=== PATIENT | male | born 1945 | race Caucasian/White ===

== ENCOUNTER → 2020-01-05 10:35 | Outpatient (BNVA) | payer MEDICARE, SELFPAY | PROVIDERS: PCP Internal Medicine; Referring Provider Internal Medicine; Visit Provider Internal Medicine Cardiovascular Disease | DX: I25.10 Atherosclerotic heart disease of native coronary artery without angina pectoris (principal); E78.5 Hyperlipidemia, unspecified; Z79.82 Long term (current) use of aspirin; Z79.899 Other long term (current) drug therapy; Z95.5 Presence of coronary angioplasty implant and graft | CPT/HCPCS: Q3014 ==

== ENCOUNTER 2020-06-28 08:35 | Outpatient (REF) | payer MEDICARE, SELFPAY ==
[2020-06-28 11:40] LABS: Hematocrit 47.9 % (42-52); Hemoglobin 15.4 g/dl (14.0-18.0); Mean Corpuscular HGB Conc 32.2 g/dl (31.0-36.0); Mean Corpuscular Volume 93.2 fL (80-98); Platelet Count 186 X10*3/uL (160-400); Red Blood Count 5.14 X10*6/uL (4.60-5.80); Red Cell Distribution Width 12.6 % (11.0-16.0); White Blood Count 6.1 X10*3/uL (4.8-10.8)
[2020-06-28 12:05] LABS: Anion Gap 12 (12-20); Blood Urea Nitrogen 14 mg/dL (9-16); Calcium 9.5 mg/dL (8.4-10.2); Carbon Dioxide 31 mmol/L (22-29); Chloride 106 mmol/L (96-108); Cholesterol 127 mg/dL; Estimated Glomerular Filt Rate > 60; Glucose Random 101 mg/dL (60-115); HDL Cholesterol 50 mg/dL; LDL Cholesterol Calculated 66 mg/dl; Potassium 4.6 mmol/L (3.3-5.1); Sodium 144 mmol/L (135-145); Triglycerides 57 mg/dL
== END 2020-06-28 08:36 | disposition home or self-care (01) ==
LOC: HO.HMGCLDS 08:35
PROVIDERS: PCP Internal Medicine; Visit Provider Internal Medicine Cardiovascular Disease
DX: E78.5 Hyperlipidemia, unspecified (principal); I25.10 Atherosclerotic heart disease of native coronary artery without angina pectoris
CPT/HCPCS: 36415; 80048; 80061; 85027

== ENCOUNTER → 2020-07-10 08:06 | Outpatient (BNVA) | payer MEDICARE, SELFPAY | PROVIDERS: PCP Internal Medicine; Visit Provider Internal Medicine Cardiovascular Disease | DX: I25.10 Atherosclerotic heart disease of native coronary artery without angina pectoris (principal); E78.5 Hyperlipidemia, unspecified | CPT/HCPCS: 93005; 99212 ==

== ENCOUNTER → 2021-08-16 08:04 | Outpatient (BNVA) | payer MEDICARE, SELFPAY | PROVIDERS: PCP Internal Medicine; Referring Provider Internal Medicine; Visit Provider Internal Medicine Cardiovascular Disease | DX: I25.10 Atherosclerotic heart disease of native coronary artery without angina pectoris (principal) | CPT/HCPCS: 93005; 99212 ==

== ENCOUNTER 2021-09-27 07:30 | Outpatient (REF) | payer MEDICARE, SELFPAY ==
[2021-09-27 11:51] LABS: Hematocrit 46.3 % (42.0-52.0); Hemoglobin 15.1 g/dl (14.0-18.0); Mean Corpuscular HGB Conc 32.6 g/dl (31.0-36.0); Mean Corpuscular Hemoglobin 30.1 pg (27.0-33.0); Mean Corpuscular Volume 92.2 fL (80.0-98.0); Mean Platelet Volume 11.4 fL (9.4-12.4); Platelet Count 150 X10*3/uL (160-400); Red Blood Count 5.02 X10*6/uL (4.60-5.80); Red Cell Distribution Width 13.1 % (11.0-16.0); White Blood Count 5.3 X10*3/uL (4.8-10.8)
[2021-09-27 12:05] LABS: Estimated Average Glucose 103 mg/dL; Hemoglobin A1c % 5.2 %
[2021-09-27 12:37] LABS: Alanine Aminotransferase 21 U/L (0-40); Albumin Level 4.4 g/dL (3.5-5.0); Alkaline Phosphatase 71 U/L (39-117); Anion Gap 13 (12-20); Aspartate Amino Transferase 21 U/L (5-37); Bilirubin Total 0.7 mg/dL (0.0-1.0); Blood Urea Nitrogen 16 mg/dL (9-16); Calcium 9.4 mg/dL (8.4-10.2); Carbon Dioxide 30 mmol/L (22-29); Chloride 106 mmol/L (96-108); Cholesterol 131 mg/dL; Estimated Glomerular Filt Rate > 60; Glucose Fasting 102 mg/dL (60-99); HDL Cholesterol 54 mg/dL; LDL Cholesterol Calculated 67 mg/dl; Sodium 144 mmol/L (135-145); Total Protein 6.7 g/dL (6.5-8.0); Triglycerides 51 mg/dL
== END 2021-09-27 07:31 | disposition home or self-care (01) ==
LOC: HO.HMGCLDS 07:30
PROVIDERS: Absent Provider Internal Medicine Cardiovascular Disease; PCP Internal Medicine; Visit Provider Internal Medicine
DX: Z00.00 Encounter for general adult medical examination without abnormal findings (principal); E78.5 Hyperlipidemia, unspecified
CPT/HCPCS: 36415; 80053; 80061; 83036; 85027

== ENCOUNTER → 2022-08-13 14:50 | Outpatient (BNVA) | payer MEDICARE, SELFPAY | PROVIDERS: PCP Internal Medicine; Referring Provider Internal Medicine; Visit Provider Nurse Practitioner Family | DX: I25.10 Atherosclerotic heart disease of native coronary artery without angina pectoris (principal); E78.5 Hyperlipidemia, unspecified; Z95.5 Presence of coronary angioplasty implant and graft; Z79.82 Long term (current) use of aspirin; Z79.899 Other long term (current) drug therapy | CPT/HCPCS: 93005; 99212 ==

== ENCOUNTER 2022-12-18 09:59 | Outpatient (AMB) | payer MEDICARE, SELFPAY ==
[2022-12-18 10:00] VITALS: BMI 23.6
--- NOTE | 2022-12-18 10:00 | MHC.OFFVIS ---
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 He explains thathe has had intermittent pain and locking over the last year with worsening symptoms over the last few months. He has utilized splinting for about a week and a half which caused increased pain. He is interested in a cortisone injection as he has had good relief with injection in his shoulder in the past. Allergies No Known Allergies Allergy (Verified 12/18/22 10:01) Medication List - Last Reconciled 12/18/22 by Ashtyn Prince MD acetaminophen (Tylenol Extra Strength) 500 mg PO Q6H PRN aspirin 81 mg PO DAILY atorvastatin 40 mg PO DAILY dorzolamide 2% 0 drps ophthalmic (eye) famotidine 20 mg PO BEDTIME finasteride 5 mg PO DAILY latanoprost 0.005% drps ophthalmic (eye) simethicone (Gas Relief (simethicone)) 125 mg PO BID-QID PRN HPI HPI Comments History of Present Illness Details Started 1 1/2 year ago, recurrent, triggering of right milddle finger. Worsened a month ago, tried a splint which made it painful. Locks on a flexed position. Points to PIP and MCP joint as tender. No swelling. No numbness No weakness PFSH Medical History (Updated 12/18/22 @ 10:45 by Ashtyn Prince MD) Trigger finger of right hand Annual physical exam CAD (coronary artery disease) Hyperlipidemia Surgical History Stented coronary artery Family History Father Cardiovascular disease Mother No problems noted. Social History Housing: House Alcohol intake: current Alcohol intake frequency: a few times a month Alcohol type: beer Patient Tobacco Use Status: Former Tobacco user e-Cigarette/Vaping Use: Never Used Current occupational status: retired Cognitive needs: No Hearing needs: No Vision needs: Yes Review of Systems Const All systems reviewed & are unremarkable except as noted in HPI and below Physical Exam Vital Signs: BMI result Body Mass Index 23.6 Constitutional: Patient appears to be in no acute distress, well nourished and well developed. MSK: Triggering right 3rd digit. Palpable nodule. No intrinsic hand weakness noted. No atrophy noted. Liliam test negative. Carpal compression test negative. Tinel sign negative. No joint tenderness or swelling or redness. Strength is 5/5 in all muscle groups tested. No increased tone noted. Neurological: Neurologic examination of the upper and lower extremities was nonfocal with intact sensation, muscle stretch reflexes and without focal motor deficits . Zayas?s negative bilaterally. Gait is non-antalgic without loss of balance. Office Procedures Tendon Injection Tendon Injection Details: Risks and benefits discussed. Consent obtained. Patient places right hand palm up on table. Identified and marked nodule. Area prepped in sterile manner. Inserted 27 gauge 0.5 inch needle perpendicular into nodule, injecting 10mg Kenalog with 0.75mg 2% Lidocaine. Patient tolerated procedure well. Post injection instructions given. [id number]-Iebidz Tendon Sheath Injection All charges added?: Procedure code (CPT) selection complete Results Reviewed Results Reviewed: 12/18/22 10:14 Lidocaine HCl 1 % [Xylocaine 1 %] 2 ml .ROUTE .STK-MED ONE 12/18/22 10:15 Triamcinolone Acetonide [Kenalog-40] 40 mg .ROUTE .STK-MED ONE Assessment & Plan Assessment & Plan (1) Trigger finger of right hand: Code(s): M65.30 - Trigger finger, unspecified finger Qualifiers: Trigger finger location: middle finger Qualified Code(s): M65.331 - Trigger finger, right middle finger Plan Patient wanted to proceed with trigger finger injection. Patient tolerated procedure well. We briefly talked about the option for surgery if this does not get better. Advise ice today. And to wear finger splint the rest of the week. Finger splint provided. Assessment and plan discussed with patient, and patient was agreeable. All questions were answered thoroughly. Possible follow-up with me 3 months. Ashtyn Prince MD, RAY Board Certified, [place] Board of [employer] Medicine and Rehabilitation (ABPMR) Board Certified, [place] Board of Electrodiagnostic Medicine (ABEM) Orders: Orders AMB Injection-Tendon Today M65.30 - Trigger finger, unspecified finger Coding Level of Care Code New Pt Level 3 (85158) Diagnoses Trigger middle finger of right hand M65.331 Trigger finger location: middle finger CPT Codes Tendon Injection - Tendon Injection 1: 03602-Emwygp Tendon Sheath Injection ([id number])
== END 2022-12-18 11:22 | disposition home or self-care (01) ==
PROVIDERS: PCP Internal Medicine; Visit Provider Physical Medicine & Rehabilitation
DX: M65.331 Trigger finger, right middle finger (principal)
CPT/HCPCS: 20550; 99203

== ENCOUNTER → 2022-12-18 09:59 | Outpatient (BNVA) | payer MEDICARE, SELFPAY | PROVIDERS: PCP Internal Medicine; Visit Provider Physical Medicine & Rehabilitation | DX: M65.331 Trigger finger, right middle finger (principal) | CPT/HCPCS: 20550; 99202; J3301 ==

== ENCOUNTER 2023-01-16 08:33 | Outpatient (AMB) | payer MEDICARE, SELFPAY ==
[2023-01-16 08:44] VITALS: BP 114/64; PULSE 70; O2SAT 96; BMI 23.9
--- NOTE | 2023-01-16 08:44 | A.OFFVIS_ITS ---
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 Pt would like to discuss getting pneumonia vaccine. Allergies No Known Allergies Allergy (Verified 01/16/23 08:49) HPI SWV G0439 HPI Details Pt presents for ANNUALInitiated the conversation about Advanced Directives. Advanced Directives help? patients prepare for current and future decisions about their medical treatment? and place of care. Discussed with patient that it is a process where a patients? current condition and prognosis are reviewed, their wishes for information? regarding their illness are elicited, and likely medical dilemmas are presented? and options discussed. The form can be amended as needed, reviewed yearly and? make changes as needed IPPE/AWV ? year old presents? for her ? Annual? Wellness Visit, initial visit.? Medical / Social History Reviewed? Past Medical History ?Yes? . ? [place]? of Care / Care Team list updated ?Yes . ? Surgical/Hospitalization? History ?Yes . ? Current Medications? (including OTC and supplements) ?Yes . ? Family History ?Yes? . ? Tobacco? Control form ?Yes . ? AUDIT-C (Alcohol use) form? ?Yes . ? Illicit drug use in Social? History ?Yes . ? Current diagnosis of? depression? ?No ? Appropriate PHQ2/PHQ9? completed ?Yes . ? Data entered by ?Medical? Test And Turn Up Technician and reviewed by provider ? Fall Risk ? Fall? History? Have you had any falls with? injury in the past year? ?No . ? Have you had two or more? falls in the past year? ?No . ? Fall Risk Assessment: ?No? falls in the past year . ? HRA filled out by? the patient, reviewed by Provider and scanned. ? IPPE/AWV ? Balance? Rom[place]? ?Yes . ? Tandem? walk ?Yes . ? Walk and? Turn ?Yes . ? Rise from? sit to stand ?Yes . ?Vision? Corrective? lens ?Yes ? Vision? screen ? Up-to-date, has an appointment [] for vision? screening and glaucoma screening ?Hearing? Whisper? test ?pass .? Initiated the conversation about Advanced Directives. Advanced Directives help? patients prepare for current and future decisions about their medical treatment? and place of care. Discussed with patient that it is a process where a patients? current condition and prognosis are reviewed, their wishes for information? regarding their illness are elicited, and likely medical dilemmas are presented? and options discussed. The form can be amended as needed, reviewed yearly and? make changes as needed Written? Plan?Completed. See Patient? Documents. [facility] Medical History Trigger finger of right hand Annual physical exam CAD (coronary artery disease) Hyperlipidemia Surgical History Stented coronary artery Family History Father Cardiovascular disease Mother No problems noted. Social History Housing: House Alcohol intake: current Alcohol intake frequency: a few times a month Alcohol type: beer Patient Tobacco Use Status: Former Tobacco user e-Cigarette/Vaping Use: Never Used Current occupational status: retired Cognitive needs: No Hearing needs: No Vision needs: Yes Questionnaire Medicare Wellness Checkup [age] What gender do you identify with?: male During the past 4 weeks, how much have you been bothered by emotional problems such as feeling anxious, depressed, irritable, sad or downhearted, and blue?: not at all During the past 4 weeks, has your physical & emotional health limited your social activities with family, friends, neighbors, or groups?: not at all During the past 4 weeks, how much bodily pain have you generally had?: very mild pain During the past 4 weeks, was someone available to help you if you needed & wanted help?: yes, as much as I wanted During the past 4 weeks, what was the hardest physical activity you could do for at least 2 minutes?: moderate Can you get to places out of walking distance without help? (For eg., can you travel alone on buses, taxis or drive your car?): Yes Can you go shopping for groceries or clothes without someone's help?: Yes Can you prepare your own meals?: Yes Can you do your housework without help?: Yes Because of any health problems, do you need the help of another person with your personal care needs such as eating, bathing, dressing or getting around the house?: No Can you handle your own money without help?: Yes During the past 4 weeks, how would you rate your health in general?: very good During the past 4 weeks how have things been going for you?: very well; could hardly better Are you having difficulties driving your car?: no Do you always fasten your seat belt when you are in a car?: yes, usually During past 4 weeks, have you been bothered by the following: never: Falling or dizzy when standing up, Sexual problems?, Trouble eating well?, Teeth or denture problems? and Problems using the telephone? and seldom: Tiredness or fatigue? Have you fallen 2 or more times in the past year?: No Are you afraid of falling?: No Are you a smoker?: no During the past 4 weeks, how many drinks of wine, beer, or other alcoholic beverages did you have?: no alcohol at all Do you exercise for about 20 minutes 3 or more times a week?: yes, most of the time Have you been given information to help with the following?: yes: Hazards in your house that might hurt you? and yes: Keeping track of your medications? How often do you have trouble taking medicines the way you have been told to take them?: I always take medicine as prescribed How confident are you that you can control & manage most of your health problems?: very confident What is your race?: White Mini Mental State Exam (MMSE) Orientation What is the (year) (season) (date) (day) (month)?: year, season, date, day and month Where are we (state) (county) (town or city) (hospital) (floor)?: state, county, town or city, hospital/clinic and floor Registration Name of 3 unrelated objects clearly and slowly, then ask patient to repeat all 3 of them. (1st repeat determines score. Make sure they can repeat all three): object 1, object 2 and object 3 Attention & Calculation (CHOOSE ONE) Spell WORLD backwards (DLROW): 5 letters Recall Ask patient to repeat the 3 items from question #3.: object 1, object 2 and object 3 Language Show patient a wristwatch & ask what it is. Repeat for pencil.: watch and pencil Ask the patient to repeat the phrase 'No ifs, ands, or buts' after you.: correct Ask the patient to 'take a piece of paper with their right hand' 'fold paper in half' 'place paper on floor': take paper in right hand, fold paper in half and place paper on floor Give patient a blank piece of paper & ask to write a sentence. Score if it contains a noun & verb.: sentence contains subject and verb Ask patient to copy figure of intersecting pentagons exactly. Score if all 10 angles & 2 intersects are included.: all 10 angles present & 2 are intersected Score Score: 29 Activity of Daily Living Bathing - sponge bath, tub bath or shower: receives no assistance (gets in/out by self, if usual bathing means Dressing - getting clothes from closets & drawers, including inner/outer garments & fasteners.: gets clothes & gets completely dressed without help Toileting - going to the 'toilet room' for urine/bowel elimination & cleaning self/arranging clothes: goes to toilet room, cleans self, arranges clothes without help Transfer: moves in & out of bed and chair without help (may use support object) Continence: controls urination/bowel movements completely by self Feeding: feeds self without help Total Score: 0 Information obtained from: patient Using telephone: independent Traveling: independent Shopping: independent Preparing meals: independent Housework: independent Taking medicine: independent Managing money: independent PHQ-9 Over the last 2 weeks, how often have you been bothered by any of the following problems? 1. Little interest or pleasure in doing things: not at all 2. Feeling down, depressed, or hopeless: not at all 3. Trouble falling or staying asleep, or sleeping too much: not at all 4. Feeling tired or having little energy: not at all 5. Poor appetite or overeating: not at all 6. Feeling bad about yourself - or that you are a failure or have let yourself or your family down: not at all 7. Trouble concentrating on things, such as reading the newspaper or watching television: not at all 8. Moving or speaking so slowly that other people could have noticed. Or the opposite - being so fidgety or restless that you have been moving around a lot more than usual: not at all 9. Thoughts that you would be better off or of hurting yourself in some way: not at all Total score: 0 Depression Screening Interpretation: Negative Depression Screening Done: Yes Source: Developed by Drs. Zaki Coelho, Mariana Oropeza, Tomi Snowden and colleagues, with an educational radha from [employer]. Review of Systems Const All systems reviewed & are unremarkable except as noted in HPI and below Reports no additional complaints Eyes Reports no additional complaints ENT Reports no additional complaints Card Reports no additional complaints Resp Reports no additional complaints GI Reports no additional complaints Reports no additional complaints Physical Exam Vital Signs: Last Vital Signs Pulse 70 01/16/23 08:44 BP 114/64 01/16/23 08:44 Pulse Ox 96 01/16/23 08:44 Oxygen Delivery Method Room Air 01/16/23 08:44 BMI result Body Mass Index 23.9 Const General: no acute distress HEENT Head: Yes normal to inspection Eyes General: appearance normal, both eyes and all related structures Neck Neck: Yes no lymphadenopathy and Yes supple Resp Effort & Inspection: normal respiratory effort Auscultation: clear to auscultation bilaterally Cardio Rhythm: regular rhythm Heart sounds: S1 normal heart sound present and S2 normal heart sound present GI Inspection: Yes normal to inspection Palpation (GI): Soft to palpation Percussion: Yes normal to percussion Auscultation: normal bowel sounds Extrem General: Yes no clubbing, cyanosis or edema Assessment & Plan Assessment & Plan (1) Stented coronary artery: Comment: drug-eluting stent to proximal LAD for acute coronary syndrome in October 2012 Code(s): Z95.5 - Presence of coronary angioplasty implant and graft Plan: cont statin and ASA (2) Annual physical exam: Code(s): Z00.00 - Encounter for general adult medical examination without abnormal findings Plan: well balanced diet, regular exercise (3) Hyperlipidemia: Code(s): E78.5 - Hyperlipidemia, unspecified Plan: Continue statin (4) Hyperglycemia: Code(s): R73.9 - Hyperglycemia, unspecified Plan: Continue ADA diet monitor A1c Orders: Orders Hemoglobin A1c Today E78.5 - Hyperlipidemia, unspecified, I25.10 - Atherosclerotic heart disease of [place] coronary artery without angina pectoris, R73.9 - Hyperglycemia, unspecified, Z00.00 - Encounter for general adult medical examination without abnormal findings Comprehensive [place]. Panel Fast Today E78.5 - Hyperlipidemia, unspecified, I25.10 - Atherosclerotic heart disease of [place] coronary artery without angina pectoris, R73.9 - Hyperglycemia, unspecified, Z00.00 - Encounter for general adult medical examination without abnormal findings Complete Blood Count Auto Diff Today E78.5 - Hyperlipidemia, unspecified, I25.10 - Atherosclerotic heart disease of [place] coronary artery without angina pectoris, R73.9 - Hyperglycemia, unspecified, Z00.00 - Encounter for general adult medical examination without abnormal findings Lipid Panel Today E78.5 - Hyperlipidemia, unspecified, I25.10 - Atherosclerotic heart disease of [place] coronary artery without angina pectoris, R73.9 - Hyperglycemia, unspecified, Z00.00 - Encounter for general adult medical examination without abnormal findings Quality Reporting (2019) Depression/Bipolar (159/160/161/177) PHQ-9: Total score: 0 Coding Level of Care Code Medicare Subsequent (G0439) Diagnoses Stented coronary artery Z95.5 Annual physical exam Z00.00 Hyperlipidemia E78.5 Hyperglycemia R73.9 CPT Codes Advance Care Planning - Advance Care Planning discussion: On file, no changes ([id number]) Advance Care Planning - Time spent: 1-15 minutes, on File ([id number]) Advance Care Planning Advance Care Planning discussion: On file, no changes Forms completed: Health Care Proxy Time spent: 1-15 minutes, on File
== END 2023-01-16 11:30 | disposition home or self-care (01) ==
PROVIDERS: PCP Internal Medicine; Visit Provider Internal Medicine
DX: Z00.00 Encounter for general adult medical examination without abnormal findings (principal); Z95.5 Presence of coronary angioplasty implant and graft; E78.5 Hyperlipidemia, unspecified; R73.9 Hyperglycemia, unspecified
CPT/HCPCS: 1123F; G0439

== ENCOUNTER 2023-01-16 09:46 | Outpatient (REF) | payer MEDICARE, SELFPAY ==
[2023-01-16 13:18] LABS: MANUAL DIFF FLAG NO
[2023-01-16 13:30] LABS: Basophils Percent Auto 0.1 % (0-2); Eosinophils Absolute Auto 0.2 X10*3/uL (0.0-0.4); Eosinophils Percent Auto 2.1 % (0-4); Hematocrit 48.6 % (42.0-52.0); Hemoglobin 15.8 g/dl (14.0-18.0); Imm Gran Abs Auto 0.02 X10*3/uL (0.00-0.03); Imm Gran Pct Auto 0.3 % (0.0-0.4); Lymphocytes Absolute Auto 1.6 X10*3/uL (1.2-4.9); Lymphocytes Percent Auto 22.9 % (20-40); Mean Corpuscular HGB Conc 32.5 g/dl (31.0-36.0); Mean Corpuscular Hemoglobin 30.2 pg (27.0-33.0); Mean Corpuscular Volume 92.7 fL (80.0-98.0); Mean Platelet Volume 11.3 fL (9.4-12.4); Monocytes Absolute Auto 0.6 X10*3/uL (0.1-1.2); Monocytes Percent Auto 7.8 % (2-11); Neutrophils Absolute Auto 4.8 x10*3/uL (2.0-8.3); Neutrophils Percent Auto 66.8 % (45-73); Platelet Count 181 X10*3/uL (160-400); Red Blood Count 5.24 X10*6/uL (4.60-5.80); Red Cell Distribution Width 13.1 % (11.0-16.0); White Blood Count 7.2 X10*3/uL (4.8-10.8)
[2023-01-16 13:40] LABS: Alanine Aminotransferase 23 U/L (0-40); Albumin Level 4.3 g/dL (3.5-5.0); Alkaline Phosphatase 74 U/L (39-117); Anion Gap 11 (12-20); Aspartate Amino Transferase 24 U/L (5-37); Bilirubin Total 0.7 mg/dL (0.0-1.0); Blood Urea Nitrogen 15 mg/dL (9-16); Calcium 9.3 mg/dL (8.4-10.2); Carbon Dioxide 29 mmol/L (22-29); Chloride 106 mmol/L (96-108); Cholesterol 124 mg/dL (<200); Estimated Glomerular Filt Rate > 60; Glucose Fasting 100 mg/dL (60-99); HDL Cholesterol 47 mg/dL (>40); LDL Cholesterol Calculated 63 mg/dL (<100); Potassium 4.5 mmol/L (3.3-5.1); Sodium 141 mmol/L (135-145); Total Protein 7.1 g/dL (6.5-8.0); Triglycerides 73 mg/dL (<150)
[2023-01-16 13:41] LABS: Estimated Average Glucose 103 mg/dL; Hemoglobin A1c % 5.2 % (<6.0)
== END 2023-01-16 09:47 | disposition home or self-care (01) ==
LOC: HO.HMGCLDS 09:46
PROVIDERS: PCP Internal Medicine; Visit Provider Internal Medicine
DX: Z00.00 Encounter for general adult medical examination without abnormal findings (principal); I25.10 Atherosclerotic heart disease of native coronary artery without angina pectoris; R73.9 Hyperglycemia, unspecified; E78.5 Hyperlipidemia, unspecified
CPT/HCPCS: 36415; 80053; 80061; 83036; 85025

== ENCOUNTER 2023-02-28 09:43 | Outpatient (AMB) | payer MEDICARE, SELFPAY ==
[2023-02-28 11:13] VITALS: BP 120/74; PULSE 72; TEMP 36.4; O2SAT 96; BMI 24.7
--- NOTE | 2023-02-28 11:13 | AM.OFFWIN_ITS ---
Intake Vital Signs 02/28/23 11:13 Height 5 ft 7.5 in Weight 160 lb BMI 24.7 BP 120/74 Blood Pressure Location Lt brachial Position Sitting Pulse 72 Pulse Source Pulse Oximeter Temp 97.5 F Temp Source Temporal Artery Scan Pulse Oximetry (%) 96 Oxygen Delivery Method Room Air Intake Visit Reasons: EST/body aches([id number]) Intake Note: pt is here today for body aches started 4 days ago Patient Tobacco Use Status: Former Tobacco user Allergies No Known Allergies Allergy (Verified 02/28/23 11:13) Medication List - Last Reconciled 02/28/23 by Syeda Ramsey NP acetaminophen (Tylenol Extra Strength) 500 mg PO Q6H PRN aspirin 81 mg PO DAILY atorvastatin 40 mg PO DAILY brimonidine 0.2% drps ophthalmic (eye) famotidine 20 mg PO BEDTIME finasteride 5 mg PO DAILY latanoprost 0.005% drps ophthalmic (eye) simethicone (Gas Relief (simethicone)) 125 mg PO BID-QID PRN Do you need a note to return to daycare/school/sports/work: No HPI HPI Comments History of Present Illness Details 77 y/o male patient who presents to walk -in clinic with c/o cough, generalized malaise, headache, nasal and chest congestion. Reports home positive COVID test, but used Box. Reports that symptoms started 2 days ago and feels like getting worse. Pt asking for Paxlovid today. Report h/o PA. Currently has CAD and being managed by Cardiology. Denies fevers, chills, N/V. PFSH Medical History Trigger finger of right hand Annual physical exam CAD (coronary artery disease) Hyperlipidemia Surgical History Stented coronary artery Family History Father Cardiovascular disease Mother No problems noted. Social History Housing: House Alcohol intake: current Alcohol intake frequency: a few times a month Alcohol type: beer Patient Tobacco Use Status: Former Tobacco user e-Cigarette/Vaping Use: Never Used Current occupational status: retired Cognitive needs: No Hearing needs: No Vision needs: Yes Physical Exam Vital Signs: Last Vital Signs Temp 97.5 F 02/28/23 11:13 Pulse 72 02/28/23 11:13 BP 120/74 02/28/23 11:13 Pulse Ox 96 02/28/23 11:13 Oxygen Delivery Method Room Air 02/28/23 11:13 BMI result Body Mass Index 24.7 Const General: no acute distress HEENT Head: Yes normocephalic Ears: external ears normal and TM's normal bilaterally General nose exam: Normal nasal mucous membranes and turbinates present and Nasal discharge present Mouth: moist mucous membranes Throat: Yes posterior oropharynx normal Resp Effort & Inspection: normal respiratory effort Auscultation: clear to auscultation bilaterally Cardio Rate: regular rate Rhythm: regular rhythm Assessment & Plan Assessment & Plan (1) URI, acute: Code(s): J06.9 - Acute upper respiratory infection, unspecified Plan: - Rest and Hydrate. - Pt declined Pav due to side effects. -Acetaminophen for pain and fever Plan - Rest and Hydrate. - Pt declined Pav due to side effects. -Acetaminophen for pain and fever Orders: Orders SARS-CoV2/FLU/RSV Today R09.89 - Other specified symptoms and signs involving the circulatory and respiratory systems, Z20.822 - Contact with and (suspected) exposure to COVID-19 Coding Level of Care Code Est Pt Level 3 (73563) Diagnoses URI, acute J06.9 Time Spent (min) 15
== END 2023-02-28 12:05 | disposition home or self-care (01) ==
PROVIDERS: PCP Internal Medicine; Visit Provider Nurse Practitioner Family
DX: J06.9 Acute upper respiratory infection, unspecified (principal)
CPT/HCPCS: 99213

== ENCOUNTER 2023-02-28 13:37 | Outpatient (REF) | payer MEDICARE, SELFPAY ==
[2023-02-28 14:25] LABS: Influenza A PCR NEGATIVE (Negative); Influenza B PCR NEGATIVE (Negative); Resp Syncy Virus RNA Qual PCR NEGATIVE (Negative); SARS COV2 PCR INHOUSE POSITIVE (Negative)
== END 2023-02-28 13:38 | disposition home or self-care (01) ==
LOC: HO.LNP 13:37
PROVIDERS: Visit Provider Nurse Practitioner Family
DX: R09.89 Other specified symptoms and signs involving the circulatory and respiratory systems (principal); Z20.822 Contact with and (suspected) exposure to COVID-19
CPT/HCPCS: 0241U

== ENCOUNTER 2023-08-19 08:00 | Outpatient (AMB) | payer MEDICARE, SELFPAY ==
--- NOTE | 2023-08-19 08:38 | A.OFFVIS_ITS ---
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 He is doing extremely well from cardiac perspective. Continues to exercise and walk extensively. Denies any symptoms exertional chest pain or shortness of breath. Denies any palpitations, lightheadedness, syncope. Tolerating his medications well. He is eating well. His last LDL was 63 mg/dL well optimized. [facility] Medical History Trigger finger of right hand Annual physical exam CAD (coronary artery disease) Hyperlipidemia Surgical History Stented coronary artery Family History Father Cardiovascular disease Mother No problems noted. Social History Housing: House Alcohol intake: current Alcohol intake frequency: a few times a month Alcohol type: beer Patient Tobacco Use Status: Former Tobacco user e-Cigarette/Vaping Use: Never Used Current occupational status: retired Cognitive needs: No Hearing needs: No Vision needs: Yes Review of Systems Const Denies chills, Denies fatigue, Denies fever(s), Denies frequent falls, Denies weakness, Denies weight gain and Denies weight loss ENT Denies dizziness Card Denies chest pain, Denies leg edema, Denies lightheadedness, Denies palpitations, Denies dyspnea, Denies dyspnea on exertion, Denies orthopnea and Denies other (loss of consciousness) Resp Denies cough, Denies dyspnea and Denies dyspnea on exertion GI Denies hematochezia and Denies change in stool character Musc Denies abnormal gait, Denies muscle weakness, Denies numbness, Denies radiating pain into limb and Denies tingling Neuro Denies abnormal gait, Denies dizziness, Denies frequent falls, Denies numbness, Denies tingling and Denies weakness Endo Denies fatigue and Denies palpitations Physical Exam Vital Signs: Last Vital Signs Pulse 72 08/19/23 08:39 BP 116/66 08/19/23 08:39 BMI result Body Mass Index 24.8 Const General: cooperative, comfortable, no acute distress, alert, awake, Physically active and well groomed Nutritional Appearance: thin Orientation/consciousness: patient oriented x3 Limitations: no limitations Neck Neck: Yes trachea midline, Yes supple and Yes no JVD Carotids: no bruits Resp Effort & Inspection: normal respiratory effort Auscultation: clear to auscultation bilaterally Cardio Jugular venous distension: no JVD Palpation: normal PMI Rate: regular rate Rhythm: regular rhythm Heart sounds: S1 normal heart sound present and S2 normal heart sound present GI Auscultation: normal bowel sounds Skin General skin exam: no rashes or lesions noted Neuro General: patient oriented x3 and no focal motor deficits Extrem General: Yes no clubbing, cyanosis or edema Psych Appearance: grossly normal Office Procedures EKG Details: EKG shows normal sinus rhythm with normal EKG at 72 beats per minute [id number], Complete Assessment & Plan Assessment & Plan (1) CAD (coronary artery disease): Code(s): I25.10 - Atherosclerotic heart disease of [place] coronary artery without angina pectoris Category: Medical Plan: Stable CAD with remote stenting to the LAD for acute myocardial infarction. Since then he is done extremely well on medical therapy. Has very high functional status and has no exertional symptoms. Unlikely to have any p rogressive CAD and myocardial ischemia. Advised to call me with any new symptoms. Continue lifelong aspirin therapy. Continue high-intensity statin therapy which he is taking and LDL is well optimized. Annual lipid check should be pursued. Will follow up in the clinic in 1 year's time, sooner p.r.n.. Thank you for allowing me to partake in his care Coding Level of Care Code Est Pt Level 3 (18476) Diagnoses CAD (coronary artery disease) I25.10 CPT Codes EKG - CPT: 64084-[id number], Complete ([id number])
[2023-08-19 08:39] VITALS: BP 116/66; PULSE 72; BMI 24.8
== END 2023-08-19 09:03 | disposition home or self-care (01) ==
PROVIDERS: PCP Internal Medicine; Visit Provider Internal Medicine Cardiovascular Disease
DX: I25.10 Atherosclerotic heart disease of native coronary artery without angina pectoris (principal)
CPT/HCPCS: 93010; 99213

== ENCOUNTER → 2023-08-19 08:00 | Outpatient (BNVA) | payer MEDICARE, SELFPAY | PROVIDERS: PCP Internal Medicine; Visit Provider Internal Medicine Cardiovascular Disease | DX: I25.10 Atherosclerotic heart disease of native coronary artery without angina pectoris (principal); I10 Essential (primary) hypertension | CPT/HCPCS: 93005; 99212 ==

== ENCOUNTER 2024-01-12 07:40 | Outpatient (REF) | payer MEDICARE, SELFPAY ==
[2024-01-12 10:04] LABS: MANUAL DIFF FLAG NO
[2024-01-12 10:05] LABS: Appearance Urine Clear; Color Urine Yellow; Glucose Urine UA Negative (Negative); Leukocyte Esterase Urine Negative (Negative); Nitrite Urine Negative (Negative); PH 5.5 (5.0-9.0); Urine Blood Negative (Negative); Urine Ketones Negative (Negative); Urine Protein Negative (Neg-Trace)
[2024-01-12 10:09] LABS: Bacteria Urine None Seen (None Seen); Hyaline Casts Urine 0-2 /LPF (0-2); RBC Urine 0-2 /HPF (0-2); Squamous Epithelial Cell Urine 0-2 /HPF (0-2); WBC Urine 0-5 /HPF (0-5)
[2024-01-12 10:09] LABS: Basophils Percent Auto 0.2 % (0-2); Eosinophils Absolute Auto 0.2 X10*3/uL (0.0-0.4); Eosinophils Percent Auto 3.5 % (0-4); Hematocrit 45.2 % (42.0-52.0); Hemoglobin 15.1 g/dl (14.0-18.0); Imm Gran Abs Auto 0.02 X10*3/uL (0.00-0.03); Imm Gran Pct Auto 0.3 % (0.0-0.4); Lymphocytes Absolute Auto 1.8 X10*3/uL (1.2-4.9); Lymphocytes Percent Auto 29.6 % (20-40); Mean Corpuscular HGB Conc 33.4 g/dl (31.0-36.0); Mean Corpuscular Volume 89.7 fL (80.0-98.0); Mean Platelet Volume 10.7 fL (9.4-12.4); Monocytes Absolute Auto 0.6 X10*3/uL (0.1-1.2); Monocytes Percent Auto 9.4 % (2-11); Neutrophils Absolute Auto 3.4 x10*3/uL (2.0-8.3); Platelet Count 188 X10*3/uL (160-400); Red Blood Count 5.04 X10*6/uL (4.60-5.80); Red Cell Distribution Width 13.1 % (11.0-16.0)
[2024-01-12 10:23] LABS: Estimated Average Glucose 108 mg/dL; Hemoglobin A1C 134.8359 umol/L; Hemoglobin A1c % 5.4 % (<6.0); Total Hemoglobin (HGBA1C) 3801.3839 umol/L
[2024-01-12 10:51] LABS: Alanine Aminotransferase 34 U/L (0-40); Albumin Level 4.1 g/dL (3.5-5.0); Alkaline Phosphatase 75 U/L (39-117); Anion Gap 10 (12-20); Aspartate Amino Transferase 33 U/L (5-37); Bilirubin Total 0.5 mg/dL (0.0-1.0); Blood Urea Nitrogen 15 mg/dL (9-16); Calcium 9.1 mg/dL (8.4-10.2); Carbon Dioxide 29 mmol/L (22-29); Chloride 106 mmol/L (96-108); Cholesterol 118 mg/dL (<200); Estimated Glomerular Filt Rate > 60; Glucose Fasting 105 mg/dL (60-99); HDL Cholesterol 40 mg/dL (>40); LDL Cholesterol Calculated 65 mg/dL (<100); Sodium 141 mmol/L (135-145); Total Protein 6.6 g/dL (6.5-8.0); Triglycerides 67 mg/dL (<150)
[2024-01-12 11:11] LABS: Vitamin D 25-OH Total 23.5 ng/mL (>30)
== END 2024-01-12 07:41 | disposition home or self-care (01) ==
LOC: HO.HMGCLDS 07:40
PROVIDERS: PCP Internal Medicine; Visit Provider Internal Medicine
DX: Z00.00 Encounter for general adult medical examination without abnormal findings (principal); E78.5 Hyperlipidemia, unspecified; R73.9 Hyperglycemia, unspecified
CPT/HCPCS: 36415; 80053; 80061; 81001; 82306; 83036; 85025

== ENCOUNTER 2024-01-21 08:36 | Outpatient (AMB) | payer MEDICARE, SELFPAY ==
--- NOTE | 2024-01-21 08:51 | A.OFFVIS_ITS ---
Intake Vital Signs 01/21/24 08:52 Height 5 ft 7.5 in Weight 165 lb BMI 25.5 BP 112/60 Blood Pressure Location Rt brachial Position Sitting Pulse 76 Pulse Source Pulse Oximeter Pulse Oximetry (%) 98 Oxygen Delivery Method Room Air Intake Visit Reasons: ROSELYN G0439 Intake Note: Pt is here today for her SWV Allergies No Known Allergies Allergy (Verified 01/21/24 08:52) Medication List - Last Reconciled 01/21/24 by Britney Mcneal MD acetaminophen (Tylenol Extra Strength) 500 mg PO Q6H PRN aspirin 81 mg PO DAILY atorvastatin 40 mg PO DAILY brimonidine 0.2% drps ophthalmic (eye) famotidine 20 mg PO BEDTIME finasteride 5 mg PO DAILY simethicone (Gas Relief (simethicone)) 125 mg PO BID-QID PRN HPI ROSELYN G0439 HPI Details Initiated the conversation about Advanced Directives. Advanced Directives help? patients prepare for current and future decisions about their medical treatment? and place of care. Discussed with patient that it is a process where a patients? current condition and prognosis are reviewed, their wishes for information? regarding their illness are elicited, and likely medical dilemmas are presented? and options discussed. The form can be amended as needed, reviewed yearly and? make changes as needed IPPE/AWV ? year old presents? for her ? Annual? Wellness Visit, initial visit.? Medical / Social History Reviewed? Past Medical History ?Yes? . ? [place]? of Care / Care Team list updated ?Yes . ? Surgical/Hospitalization? History ?Yes . ? Current Medications? (including OTC and supplements) ?Yes . ? Family History ?Yes? . ? Tobacco? Control form ?Yes . ? AUDIT-C (Alcohol use) form? ?Yes . ? Illicit drug use in Social? History ?Yes . ? Current diagnosis of? depression? ?No ? Appropriate PHQ2/PHQ9? completed ?Yes . ? 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 Fall Risk ? Fall? History? Have you had any falls with? injury in the past year? ?No . ? Have you had two or more? falls in the past year? ?No . ? Fall Risk Assessment: ?No? falls in the past year . ? HRA filled out by? the patient, reviewed by Provider and scanned. ? IPPE/AWV ? Balance? [place]? ?Yes . ? Tandem? walk ?Yes . ? Walk and? Turn ?Yes . ? Rise from? sit to stand ?Yes . ?Vision? Corrective? lens ?Yes ? Vision? screen ? Up-to-date, has an appointment [] for vision? screening and glaucoma screening ?Hearing? Whisper? test ?pass .? Initiated the conversation about Advanced Directives. Advanced Directives help? patients prepare for current and future decisions about their medical treatment? and place of care. Discussed with patient that it is a process where a patients? current condition and prognosis are reviewed, their wishes for information? regarding their illness are elicited, and likely medical dilemmas are presented? and options discussed. The form can be amended as needed, reviewed yearly and? make changes as needed Written? Plan?Completed. See Patient? Documents. [facility] Medical History Trigger finger of right hand Annual physical exam CAD (coronary artery disease) Hyperlipidemia Surgical History Stented coronary artery Family History Father Cardiovascular disease Mother No problems noted. Social History Housing: House Alcohol intake: current Alcohol intake frequency: a few times a month Alcohol type: beer Patient Tobacco Use Status: Former Tobacco user e-Cigarette/Vaping Use: Never Used Current occupational status: retired Cognitive needs: No Hearing needs: No Vision needs: Yes Questionnaire Medicare Wellness Checkup [age] What gender do you identify with?: male During the past 4 weeks, how much have you been bothered by emotional problems such as feeling anxious, depressed, irritable, sad or downhearted, and blue?: not at all During the past 4 weeks, has your physical & emotional health limited your social activities with family, friends, neighbors, or groups?: moderately During the past 4 weeks, how much bodily pain have you generally had?: moderate pain During the past 4 weeks, was someone available to help you if you needed & wanted help?: yes, some During the past 4 weeks, what was the hardest physical activity you could do for at least 2 minutes?: moderate Can you get to places out of walking distance without help? (For eg., can you travel alone on buses, taxis or drive your car?): Yes Can you go shopping for groceries or clothes without someone's help?: Yes Can you prepare your own meals?: Yes Can you do your housework without help?: Yes Because of any health problems, do you need the help of another person with your personal care needs such as eating, bathing, dressing or getting around the house?: No Can you handle your own money without help?: Yes During the past 4 weeks, how would you rate your health in general?: very good During the past 4 weeks how have things been going for you?: pretty well Are you having difficulties driving your car?: no Do you always fasten your seat belt when you are in a car?: yes, usually During past 4 weeks, have you been bothered by the following: never: Falling or dizzy when standing up, Sexual problems?, Trouble eating well?, Teeth or denture problems?, Problems using the telephone? and Tiredness or fatigue? Have you fallen 2 or more times in the past year?: No Are you afraid of falling?: No Are you a smoker?: no During the past 4 weeks, how many drinks of wine, beer, or other alcoholic beverages did you have?: no alcohol at all Do you exercise for about 20 minutes 3 or more times a week?: yes, all the time Have you been given information to help with the following?: yes: Hazards in your house that might hurt you? and yes: Keeping track of your medications? How often do you have trouble taking medicines the way you have been told to take them?: I always take medicine as prescribed How confident are you that you can control & manage most of your health problems?: very confident What is your race?: White Mini Mental State Exam (MMSE) Orientation What is the (year) (season) (date) (day) (month)?: year, season, date, day and month Where are we (state) (county) (town or city) (hospital) (floor)?: state, county, town or city, hospital/clinic and floor Registration Name of 3 unrelated objects clearly and slowly, then ask patient to repeat all 3 of them. (1st repeat determines score. Make sure they can repeat all three): object 1, object 2 and object 3 Attention & Calculation (CHOOSE ONE) Spell WORLD backwards (DLROW): 5 letters Recall Ask patient to repeat the 3 items from question #3.: object 1, object 2 and object 3 Language Show patient a wristwatch & ask what it is. Repeat for pencil.: watch and pencil Ask the patient to repeat the phrase 'No ifs, ands, or buts' after you.: correct Ask the patient to 'take a piece of paper with their right hand' 'fold paper in half' 'place paper on floor': take paper in right hand, fold paper in half and place paper on floor Print the sentence 'CLOSE YOUR EYES' on a piece. If patient actually closes eyes then score.: followed written direction Give patient a blank piece of paper & ask to write a sentence. Score if it contains a noun & verb.: sentence contains subject and verb Score Score: 29 PHQ-9 Over the last 2 weeks, how often have you been bothered by any of the following problems? 1. Little interest or pleasure in doing things: not at all 2. Feeling down, depressed, or hopeless: not at all 3. Trouble falling or staying asleep, or sleeping too much: not at all 4. Feeling tired or having little energy: not at all 5. Poor appetite or overeating: not at all 6. Feeling bad about yourself - or that you are a failure or have let yourself or your family down: not at all 7. Trouble concentrating on things, such as reading the newspaper or watching television: not at all 8. Moving or speaking so slowly that other people could have noticed. Or the opposite - being so fidgety or restless that you have been moving around a lot more than usual: not at all 9. Thoughts that you would be better off or of hurting yourself in some way: not at all Total score: 0 Source: Developed by Drs. Zaki Coelho, Mariana Oropeza, Tomi Snowden and colleagues, with an educational radha from [employer]. Review of Systems Const All systems reviewed & are unremarkable except as noted in HPI and below Reports no additional complaints Eyes Reports no additional complaints ENT Reports no additional complaints Card Reports no additional complaints Resp Reports no additional complaints GI Reports no additional complaints Reports no additional complaints Musc Reports no additional complaints Skin/Breast Reports system reviewed and no additional complaints, except as documented Physical Exam Vital Signs: Last Vital Signs Pulse 76 01/21/24 08:52 BP 112/60 01/21/24 08:52 Pulse Ox 98 01/21/24 08:52 Oxygen Delivery Method Room Air 01/21/24 08:52 BMI result Body Mass Index 25.5 Const General: no acute distress HEENT Head: Yes normal to inspection Ears: hearing grossly normal bilaterally Resp Effort & Inspection: normal respiratory effort Auscultation: clear to auscultation bilaterally Cardio Rhythm: regular rhythm Heart sounds: S1 normal heart sound present and S2 normal heart sound present GI Inspection: Yes normal to inspection Palpation (GI): Soft to palpation Percussion: Yes normal to percussion Auscultation: normal bowel sounds Extrem General: Yes no clubbing, cyanosis or edema Assessment & Plan Assessment & Plan (1) Annual physical exam: Code(s): Z00.00 - Encounter for general adult medical examination without abnormal findings Plan: WELL-BALANCED DIET REGULAR PHYSICAL ACTIVITY DISCUSSED WITH THE PATIENT (2) Hyperlipidemia: Code(s): E78.5 - Hyperlipidemia, unspecified Plan: Continue statin (3) CAD (coronary artery disease): Code(s): I25.10 - Atherosclerotic heart disease of [place] coronary artery without angina pectoris Plan: Continue aspirin follow-up with Cardiology once a year Orders: Orders Comprehensive [place]. Panel Fast 1 Year E78.5 - Hyperlipidemia, unspecified, Z00.00 - Encounter for general adult medical examination without abnormal findings Complete Blood Count Auto Diff 1 Year E78.5 - Hyperlipidemia, unspecified, Z00.00 - Encounter for general adult medical examination without abnormal findings Lipid Panel 1 Year E78.5 - Hyperlipidemia, unspecified, Z00.00 - Encounter for general adult medical examination without abnormal findings Medications: Refilled atorvastatin 40 mg PO DAILY 90 tabs 3RF famotidine 20 mg PO BEDTIME 90 tabs 3RF heartburn K21.9 - Gastro-esophageal reflux disease without esophagitis Quality Reporting (2019) Depression/Bipolar (159/160/161/177) PHQ-9: Total score: 0 Coding Level of Care Code Medicare Subsequent (G0439) Diagnoses Annual physical exam Z00.00 Hyperlipidemia E78.5 CAD (coronary artery disease) I25.10 CPT Codes Advance Care Planning - Advance Care Planning discussion: On file, no changes ([id number]) Advance Care Planning - Time spent: 1-15 minutes, on File ([id number]) Advance Care Planning Advance Care Planning discussion: On file, no changes Forms completed: Health Care Proxy Time spent: 1-15 minutes, on File Did not discuss due to Cultural/Spiritual beliefs: Yes
[2024-01-21 08:52] VITALS: BP 112/60; PULSE 76; O2SAT 98; BMI 25.5
== END 2024-01-21 09:18 | disposition home or self-care (01) ==
PROVIDERS: PCP Internal Medicine; Visit Provider Internal Medicine
DX: Z00.00 Encounter for general adult medical examination without abnormal findings (principal); E78.5 Hyperlipidemia, unspecified; I25.10 Atherosclerotic heart disease of native coronary artery without angina pectoris

== ENCOUNTER → 2024-01-21 08:36 | Outpatient (BNVA) | payer MEDICARE, SELFPAY | PROVIDERS: PCP Internal Medicine; Visit Provider Internal Medicine ==

== ENCOUNTER 2024-08-18 07:21 | Outpatient (REF) | payer MEDICARE, SELFPAY ==
[2024-08-18 07:36] LABS: MANUAL DIFF FLAG NO
[2024-08-18 08:00] LABS: Hematocrit 45.0 % (42.0-52.0); Hemoglobin 15.2 g/dl (14.0-18.0); Imm Gran Abs Auto 0.01 X10*3/uL (0.00-0.03); Imm Gran Pct Auto 0.2 % (0.0-0.4); Lymphocytes Absolute Auto 1.4 X10*3/uL (1.2-4.9); Mean Corpuscular HGB Conc 33.8 g/dl (31.0-36.0); Mean Corpuscular Hemoglobin 29.8 pg (27.0-33.0); Mean Corpuscular Volume 88.2 fL (80.0-98.0); NRBC Abs Auto 0.000 X10*3/uL (0.0-0.012); NRBC Pct Auto 0.0 /100WBC (0.0-0.2); Platelet Count 127 X10*3/uL (160-400); Red Blood Count 5.10 X10*6/uL (4.60-5.80); White Blood Count 5.6 X10*3/uL (4.8-10.8)
[2024-08-18 08:24] LABS: Alanine Aminotransferase 33 U/L (0-40); Albumin Level 4.3 g/dL (3.5-5.0); Alkaline Phosphatase 73 U/L (39-117); Anion Gap 13 (12-20); Aspartate Amino Transferase 42 U/L (5-37); Blood Urea Nitrogen 16 mg/dL (9-16); Calcium 9.3 mg/dL (8.4-10.2); Carbon Dioxide 28 mmol/L (22-29); Chloride 105 mmol/L (96-108); Cholesterol 120 mg/dL (<200); Estimated Glomerular Filt Rate > 60; HDL Cholesterol 36 mg/dL (>40); Potassium 4.3 mmol/L (3.3-5.1); Sodium 142 mmol/L (135-145); Total Protein 6.8 g/dL (6.5-8.0); Triglycerides 94 mg/dL (<150)
== END 2024-08-18 07:22 | disposition home or self-care (01) ==
LOC: HO.LAB 07:21
PROVIDERS: PCP Internal Medicine; Visit Provider Internal Medicine
DX: Z00.00 Encounter for general adult medical examination without abnormal findings (principal); E78.5 Hyperlipidemia, unspecified
CPT/HCPCS: 36415; 80053; 80061; 85025

== ENCOUNTER 2024-08-24 08:58 | Outpatient (AMB) | payer MEDICARE, SELFPAY ==
[2024-08-24 09:14] VITALS: BP 122/70; PULSE 76; BMI 24.5
--- NOTE | 2024-08-24 09:14 | A.OFFVIS_ITS ---
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 He said he remains very active. Walks multiple times a day. No exertional chest pain or shortness of breath. Takes all his medications. Denies any prolonged palpitation irregular heartbeat. No lightheadedness, syncope. Blood pressure is generally well controlled. Most recent LDL at 66 mg/dL. [facility] Medical History Trigger finger of right hand Annual physical exam CAD (coronary artery disease) Hyperlipidemia Surgical History Stented coronary artery Family History Father Cardiovascular disease Mother No problems noted. Social History Housing: House Alcohol intake: current Alcohol intake frequency: a few times a month Alcohol type: beer Patient Tobacco Use Status: Former Tobacco user e-Cigarette/Vaping Use: Never Used Current occupational status: retired Cognitive needs: No Hearing needs: No Vision needs: Yes Review of Systems Const Denies chills, Denies fatigue, Denies fever(s), Denies frequent falls, Denies weakness, Denies weight gain and Denies weight loss ENT Denies dizziness Card Denies chest pain, Denies leg edema, Denies lightheadedness, Denies palpitations, Denies dyspnea, Denies dyspnea on exertion, Denies orthopnea and Denies other (loss of consciousness) Resp Denies cough, Denies dyspnea and Denies dyspnea on exertion GI Denies hematochezia and Denies change in stool character Musc Denies abnormal gait, Denies muscle weakness, Denies numbness, Denies radiating pain into limb and Denies tingling Neuro Denies abnormal gait, Denies dizziness, Denies frequent falls, Denies numbness, Denies tingling and Denies weakness Endo Denies fatigue and Denies palpitations Physical Exam Vital Signs: Last Vital Signs Pulse 76 08/24/24 09:14 BP 122/70 08/24/24 09:14 BMI result Body Mass Index 24.5 Const General: cooperative, comfortable, no acute distress, alert, awake, Physically active and well groomed Nutritional Appearance: thin Orientation/consciousness: patient oriented x3 Limitations: no limitations Neck Neck: Yes trachea midline, Yes supple and Yes no JVD Carotids: no bruits Resp Effort & Inspection: normal respiratory effort Auscultation: clear to auscultation bilaterally Cardio Jugular venous distension: no JVD Palpation: normal PMI Rate: regular rate Rhythm: regular rhythm Heart sounds: S1 normal heart sound present and S2 normal heart sound present GI Auscultation: normal bowel sounds Skin General skin exam: no rashes or lesions noted Neuro General: patient oriented x3 and no focal motor deficits Extrem General: Yes no clubbing, cyanosis or edema Psych Appearance: grossly normal Office Procedures EKG Details: EKG shows normal sinus rhythm with sinus arrhythmias 76 beats per minute [id number], Complete Assessment & Plan Assessment & Plan (1) CAD (coronary artery disease): Code(s): I25.10 - Atherosclerotic heart disease of [place] coronary artery without angina pectoris Category: Medical Plan: Coronary artery disease with prior stenting 12 years ago for acute coronary syndrome to the LAD. Since then he has done very well with medical therapy. He is recommended continue aggressive medical therapy. Lifelong aspirin therapy is advised. Also continue high-intensity statin therapy with well optimized LDL which has remained stable over the last many years. Continue modified diet as well as regular exercise as part of his treatment regimen. He understands agrees. Advised to monitor sugars as well as blood pressures at home. (2) Hyperlipidemia: Code(s): E78.5 - Hyperlipidemia, unspecified Category: Medical Plan: Hyperlipidemia which has been well optimized over the many years with high- intensity statin therapy. Target goal LDL less than 70 mg/dL. Encouraged to maintain heart healthy lifestyle as well as dietary modification which she is pursuing. Will follow up in the clinic in 1 year's time, sooner p.r.n.. Thank you for allowing me to partake in his care Coding Level of Care Code Est Pt Level 4 (46878) Complex EM visit Add On G2211 Diagnoses CAD (coronary artery disease) I25.10 Hyperlipidemia E78.5 CPT Codes EKG - CPT: 71291-[id number], Complete ([id number])
== END 2024-08-24 09:44 | disposition home or self-care (01) ==
LOC: HO.HCS 08:59
PROVIDERS: PCP Internal Medicine; Visit Provider Internal Medicine Cardiovascular Disease
DX: I25.10 Atherosclerotic heart disease of native coronary artery without angina pectoris (principal); E78.5 Hyperlipidemia, unspecified
CPT/HCPCS: 93010; 99214; G2211

== ENCOUNTER → 2024-08-24 08:58 | Outpatient (BNVA) | payer MEDICARE, SELFPAY | PROVIDERS: PCP Internal Medicine; Visit Provider Internal Medicine Cardiovascular Disease | DX: I25.10 Atherosclerotic heart disease of native coronary artery without angina pectoris (principal); E78.5 Hyperlipidemia, unspecified; Z95.5 Presence of coronary angioplasty implant and graft; Z79.82 Long term (current) use of aspirin; Z79.899 Other long term (current) drug therapy | CPT/HCPCS: 93005; 99212 ==

== ENCOUNTER 2024-09-07 12:04 | Outpatient (AMB) | payer MEDICARE, SELFPAY ==
[2024-09-07 13:02] VITALS: BMI 24.4
--- NOTE | 2024-09-07 13:02 | A.OFFVIS_ITS ---
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 States this finger begin to lock approx in 2021, he has history of trigger finger injections and has worked in the past. Last injection was with Dr. South on 12/19/2022. Patient would like to discuss injection. Denies numbness or tingling. 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 He complains of painful locking & catching of his right middle finger, which he says began in 2021. He was last seen by Dr. South for a trigger finger injection on 12/18/22, with good relief until a few months ago. He would like to discuss treatment options. He denies any numbness or tingling. He says he as Glaucoma and is concerned about having surgery in case this limits his ability to open & take his medications. He says he lives alone without close by family, and has no other supports at this time. [facility] Medical History Trigger finger of right hand Annual physical exam CAD (coronary artery disease) Hyperlipidemia Surgical History Stented coronary artery Family History Father Cardiovascular disease Mother No problems noted. Social History (Updated 09/07/24 @ 13:17 by KATH Raines) Housing: House Alcohol intake: current Alcohol intake frequency: a few times a month Alcohol type: beer Patient Tobacco Use Status: Former Tobacco user e-Cigarette/Vaping Use: Never Used Current occupational status: retired Current occupation: rt hand Cognitive needs: No Hearing needs: No Vision needs: Yes Review of Systems Const All systems reviewed & are unremarkable except as noted in HPI and below Physical Exam Vital Signs: BMI result Body Mass Index 24.4 Const General: cooperative, healthy appearing and no acute distress Orientation/consciousness: patient oriented x3 HEENT Head: Yes normocephalic and Yes atraumatic Eyes EOM: EOMs intact bilaterally Resp Effort & Inspection: normal respiratory effort and able to speak in complete sentences Cardio Jugular venous distension: no JVD Skin General skin exam: turgor normal Rashes: no rashes Neuro General: patient oriented x3 Extrem Other: Evaluation of Right Upper Extremity: The patient is alert, oriented, and in no acute distress Neuro: Median, Ulnar, Radial nerves motor and sensory intact and sensation is normal to the tips of all digits Vascular: Cap refill brisk ROM: He can make a fist and extend all his digits Visible & palpable locking and catching of the middle finger Tender over the middle finger a1 abrahan Skin: No lacerations or abrasions. General: No Ecchymosis. No Erythema or evidence of infection. Psych Appearance: grossly normal Affect: normal affect Attitude: cooperative Office Procedures AMB Fracture Care Details: No fracture, injection Fracture Billing Code: Fracture Billing Code Assessment & Plan Assessment & Plan (1) Trigger middle finger of right hand: Code(s): M65.331 - Trigger finger, right middle finger Category: Medical Plan Assessment & Plan: 1. Right middle finger trigger finger, S/P injection Date of injection: 12/18/[address] South I educated him about this condition I discussed operative and non-operative treatment options The patient would like to proceed with an injection Injection #1: The risks and benefits of a steroid injection including but not limited to risk of damage to blood vessels, nerves, tendons, infection, skin bleaching, failure to improve symptoms, increased pain, and possible need for further injections or other intervention were discussed with the patient and the patient wishes to proceed with the steroid injection. Once consent was obtained, I sterilely prepped the area over the A1 abrahan of the flexor tendon sheath of the Right middle finger. I then injected the flexor tendon sheath with a combination of 1 mL of dexamethasone (4mg/ml), and 1% lidocaine. The patient tolerated the procedure well with no complications. If the patient continues to have locking and catching 4-6 weeks following this injection, they may call to schedule appointment to discuss alternative treatment options Follow-up prn Scribed for Jaz Rinaldi MD by Twan Santacruz, medical director occupational health, on 09/07/24 at 1:40 PM, EST. Coding Level of Care Code New Pt Level 4 (13463) Diagnoses Trigger middle finger of right hand M65.331 CPT Codes Fracture Care - Fracture Billing Code: Fracture Billing Code ([id number])
--- OUTSIDE RECORDS SUMMARY | 2024-09-07 13:12 | XMS_ITS | Encounter Summary ---
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, unspecified vessel or lesion type, unspecified whether confederated goshute or transplanted heart (Primary Dx) Social History Tobacco Use Types Packs/Day Years Used Date Smoking Tobacco: Never Assessed Sex and Gender Information Value Date Recorded Sex Assigned at Not on file Legal Sex Male 10:07 PM EDT Gender Identity Not on file Sexual Orientation Not on file documented as of this encounter Plan of Treatment Not on file documented as of this encounter Results * (ABNORMAL) Lipid panel (03/31/2017 7:45 AM EST) HDL 55 mg/dL [facility] Comment: Interpretation: Risk Level Males Decreased >45 mg/dL Average 40-45 mg/dL Increased <40 mg/dL CHOLESTEROL 126 0 - 240 mg/dL [facility] TRIGLYCERIDES 59 30 - 160 mg/dL [facility] LDL 59 50 - 129 mg/dL [facility] Comment: LDL levels in terms of risk for coronary heart disease: <100 mg/dL: Optimal 100-129 mg/dL: Near or above optimal 130-159 mg/dL: Borderline high 160-189 mg/dL: High >190 mg/dL: Very High CARDIAC RISK RATIO 2.3(L) 3.4 - 5.0 C [facility] Blood 03/31/2017 7:45 AM EST 03/31/2017 7:48 AM EST us Philip Jurado MD LAB BLOOD ORDERABLES Final Resu lt Performing Organization Address [facility]/ZIP Co de Phone Number [address] [address] * Comprehensive metabolic panel (03/31/2017 7:45 AM EST) SODIUM 144 133 - 146 mmol/L [facility] POTASSIUM 5.0 3.3 - 5.1 mmol/L [facility] CHLORIDE 106 96 - 108 mmol/L [facility] CO2 29 21 - 35 mmol/L [facility] BUN 13 6 - 19 mg/dL [facility] CREATININE 1.00 0.5 - 1.5 mg/dL [facility] GLUCOSE 97 70 - 99 mg/dL [facility] ALBUMIN 4.2 3.9 - 4.8 g/dL [facility] TOTAL PROTEIN 6.6 6.5 - 8.0 g/dL [facility] CALCIUM 9.3 8.4 - 10.3 mg/dL [facility] ALKALINE PHOSPHATASE 93 39 - 117 U/L [facility] TOTAL BILIRUBIN 0.5 0 - 1.2 mg/dL [facility] AST 25 0 - 37 U/L [facility] ALT 23 0 - 40 U/L [facility] GLOBULIN 2.4 1 - 4.8 g/dL [facility] EGFR >60 mL/min/1.7 3m2 [facility] Comment:Abnormal if <60. If patient is -[place]serr[place], multiply the result by 1.21. 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 It is not the complete legal health record.[facility]
== END 2024-09-07 14:15 | disposition home or self-care (01) ==
LOC: HO.HOS 12:05
PROVIDERS: PCP Internal Medicine; Visit Provider Orthopaedic Surgery
DX: M65.331 Trigger finger, right middle finger (principal)
CPT/HCPCS: 20550; 99204

== ENCOUNTER → 2024-09-07 12:04 | Outpatient (BNVA) | payer MEDICARE, SELFPAY | PROVIDERS: PCP Internal Medicine; Visit Provider Orthopaedic Surgery | DX: M65.331 Trigger finger, right middle finger (principal) | CPT/HCPCS: 20550; 99202; J1100; J2003 ==

== ENCOUNTER 2024-12-28 09:29 | Outpatient (AMB) | payer MEDICARE, SELFPAY ==
[2024-12-28 09:40] VITALS: BP 124/60; PULSE 74; TEMP 36.8; O2SAT 98; BMI 23.6
--- NOTE | 2024-12-28 09:40 | MHC.OFFWIV ---
Intake Vital Signs 12/28/24 09:40 Height 5 ft 7.5 in Weight 153 lb BMI 23.6 BP 124/60 Blood Pressure Location Rt brachial Position Sitting Pulse 74 Pulse Source Pulse Oximeter Temp 98.2 F Temp Source Oral Pulse Oximetry (%) 98 Oxygen Delivery Method Room Air Intake Visit Reasons: EP possible insect bite on left arm Intake Note: pt presents with a small scab like lesion with bruising on left upper arm. pt reports tick bite to groin 4 wks ago received over the phone tx from PCP, was rx'd prophylactic doxycycline 100mg 2 tabs at once. Patient Tobacco Use Status: Former Tobacco user Allergies No Known Allergies Allergy (Verified 12/28/24 09:45) Do you need a note to return to daycare/school/sports/work: No HPI HPI Comments History of Present Illness Details History of Present Illness - The patient is a 79-year-old male presenting with concerns about a possible insect bite. - The patient noticed the bite upon waking up today. - There is no associated pain, fever, or joint pain reported. - The patient denies any recent injury to the area and reports no difficulty in moving the arm. - The patient has not observed any tick or bullseye rash. Review of Systems - General: Denies fever. - Musculoskeletal: Denies joint pain. - Integumentary: Reports a circular oleg with central scabbing and surrounding bruising. All systems reviewed and are unremarkable except as noted in HPI Physical Exam General: Cooperative, healthy appearing, comfortable, no acute distress and well developed Orientation: Patient oriented x3 Limitations: No limitations Head: Normal to inspection Ears: Hearing grossly normal bilaterally Nose: Normal External nose present Face and sinus: Normal facial exam Eyes: Appearance normal, both eyes and all related structures Neck: Normal visual inspection and Yes full ROM Respiratory: Normal respiratory effort and able to speak in complete sentences. Skin: LUE with pinpoint scab and surrounding ecchymosis, no drainage, no warmth, no erythema; no rashes or lesions noted otherwise Neuro: Patient oriented x3 Extremities: Normal to inspection, left elbow and shoulder with full ROM [facility] Medical History Trigger finger of right hand Annual physical exam CAD (coronary artery disease) Hyperlipidemia Surgical History Stented coronary artery Family History Father Cardiovascular disease Mother No problems noted. Social History (Updated 09/07/24 @ 13:17 by KATH Raines) Housing: House Alcohol intake: current Alcohol intake frequency: a few times a month Alcohol type: beer Patient Tobacco Use Status: Former Tobacco user e-Cigarette/Vaping Use: Never Used Current occupational status: retired Current occupation: rt hand Cognitive needs: No Hearing needs: No Vision needs: Yes Physical Exam Vital Signs: Last Vital Signs Temp 98.2 F 12/28/24 09:40 Pulse 74 12/28/24 09:40 BP 124/60 12/28/24 09:40 Pulse Ox 98 12/28/24 09:40 Oxygen Delivery Method Room Air 12/28/24 09:40 BMI result Body Mass Index 23.6 Assessment & Plan Assessment & Plan (1) Insect bite of left upper arm: Code(s): S40.862A - Insect bite (nonvenomous) of left upper arm, initial encounter; W57.XXXA - Bitten or stung by nonvenomous insect and other nonvenomous arthropods, initial encounter Qualifiers: Encounter type: initial encounter Qualified Code(s): S40.862A - Insect bite (nonvenomous) of left upper arm, initial encounter; W57.XXXA - Bitten or stung by nonvenomous insect and other nonvenomous arthropods, initial encounter Plan: Patient was informed and verbally consented to the use of an ambient scribe for clinic note documentation during this visit. Possible Insect Bite - Monitor for symptoms such as fever, joint pain, or rashes. - Advised to seek dermatological consultation via PCP if unusual changes occur to the area. - Reassurance provided regarding the natural progression of bruising due to gravity. Coding Level of Care Code Est Pt Level 3 (10097) Diagnoses Insect bite of left upper arm, initial encounter S40.862A; W57.XXXA Encounter type: initial encounter
--- OUTSIDE RECORDS SUMMARY | 2024-12-28 10:22 | XMS_ITS | Encounter Summary ---
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, unspecified vessel or lesion type, unspecified whether tribal or transplanted heart (Primary Dx) Social History [...] (03/31/2017 7:45 AM EST) HDL 55 mg/dL [facility] Comment: Interpretation: Risk Level Males Decreased >45 mg/dL Average 40-45 mg/dL Increased <40 mg/dL CHOLESTEROL 126 0 - 240 mg/dL [facility] TRIGLYCERIDES 59 30 - 160 mg/dL [facility] LDL 59 50 - 129 mg/dL [facility] Comment: LDL levels in terms of risk for coronary heart disease: <100 mg/dL: Optimal 100-129 mg/dL: Near or above optimal 130-159 mg/dL: Borderline high 160-189 mg/dL: High >190 mg/dL: Very High CARDIAC RISK RATIO 2.3(L) 3.4 - 5.0 C [facility] Blood 03/31/2017 7:45 AM EST 03/31/2017 7:48 AM EST us Philip Jurado MD LAB BLOOD BKR ORDERABLES Final Result Performing Organization Address City/[facility]/ZIP Co de Phone Number [address] [address] * Comprehensive metabolic panel (03/31/2017 7:45 AM EST) SODIUM 144 133 - 146 mmol/L [facility] POTASSIUM 5.0 3.3 - 5.1 mmol/L [facility] CHLORIDE 106 96 - 108 mmol/L [facility] CO2 29 21 - 35 mmol/L [facility] BUN 13 6 - 19 mg/dL [facility] CREATININE 1.00 0.5 - 1.5 mg/dL [facility] GLUCOSE 97 70 - 99 mg/dL [facility] ALBUMIN 4.2 3.9 - 4.8 g/dL [facility] TOTAL PROTEIN 6.6 6.5 - 8.0 g/dL [facility] CALCIUM 9.3 8.4 - 10.3 mg/dL [facility] ALKALINE PHOSPHATASE 93 39 - 117 U/L [facility] TOTAL BILIRUBIN 0.5 0 - 1.2 mg/dL [facility] AST 25 0 - 37 U/L [facility] ALT 23 0 - 40 U/L [facility] GLOBULIN 2.4 1 - 4.8 g/dL [facility] EGFR >60 mL/min/1.7 3m2 [facility] Comment:Abnormal if <60. If patient is -Maltese, multiply the result by 1.21. 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 It is not the complete legal health record.[facility]
--- OUTSIDE RECORDS SUMMARY | 2024-12-28 10:22 | XMS_ITS | Clinical Summary ---
Author Organization [facility] Address [address] [place], [place] [id number] Phone Care Team Providers Care Offshore Wind Operations Manager Name Role Phone Philip Jurado MD Primary Care Provider Unavaila ble Social History Tobacco Use Types Packs/Day Years Used Date Smoking Tobacco: Never Assessed Sex and Gender Information Value Date Recorded Sex Assigned at Not on file Legal Sex Male 10:07 PM EDT Gender Identity Not on file Sexual Orientation Not on file Plan of Treatment Not on file Medical Devices Not on file Insurance [place] A [place] [id number] [facility] MEDICARE SUPPLEMENT [place] [address] [id number] MEDICARE PART A & B MEDICARE SUPPLEMENT MEDICARE PART A & B MEDICARE SUPPLEMENT MEDICARE PART A & B MEDICARE SUPPLEMENT MEDICARE PART A & B MEDICARE SUPPLEMENT MEDICARE PART A & B [facility] MEDICARE SUPPLEMENT MEDICARE PART A & B MEDICARE SUPPLEMENT MEDICARE PART A & B MEDICARE SUPPLEMENT MEDICARE PART A & B [facility] MEDICARE SUPPLEMENT [facility] Address: [facility] [address] [place] [address] Care Teams Offshore Wind Operations Manager Relationship Specialty Start Date End Date Philip Jurado MD PCP - General Internal Medicine 03/31/17 Additional Source Comments The information contained in this document represents components of the legal health record. It is not the complete legal health record.[facility]
--- OUTSIDE RECORDS SUMMARY | 2024-12-28 10:22 | XMS_ITS | Encounter Summary ---
Author Organization [facility] Address [address] [facility] [address] [place] [address] Phone Care Team Providers Care Pin Or Clip Fastener Name Role Phone Philip Jurado MD Primary Care Provider Unavaila ble Encounter Details Date Type Department Care Team (Latest Contact Info) Description 04/14/2017 Transcribe Orders [address] [place] [address] Philip Jurado MD Low back pain, unspecified back pain laterality, unspecified chronicity, with sciatica presence unspecified (Primary Dx) Social History Tobacco Use Types Packs/Day Years Used Date Smoking Tobacco: Never Assessed Sex and Gender Information Value Date Recorded Sex Assigned at Not on file Legal Sex Male 10:07 PM EDT Gender Identity Not on file Sexual Orientation Not on file documented as of this encounter Plan of Treatment Not on file documented as of this encounter Results * Sedimentation rate (ESR) (04/14/2017 12:13 PM EST) Pathologist [facility] ESR 3 0 - 20 mm/h [facility] Blood 04/14/2017 12:1 3 PM EST 04/14/2017 12:15 PM EST us Philip Jurado MD LAB BLOOD BKR ORDERABLES Final Result [facility] [address] [place] [address] * C-Reactive Protein (04/14/2017 12:13 PM EST) Pathologist [facility] C REACTIVE PROTEIN 0.0 0 - 0.5 mg/L [facility] Blood 04/14/2017 12:1 3 PM EST 04/14/2017 12:15 PM EST us Philip Jurado MD LAB BLOOD BKR ORDERABLES Final Result [facility] [address] [place] [address] * (ABNORMAL) CBC and differential (04/14/2017 12:13 PM EST) WBC 7.02 3.40 - 11.20 K/uL [facility] RBC 4.98 4.50 - 5.50 M/uL [facility] HGB 14.7 13.0 - 17.0 g/dL [facility] HCT 44.3 40.0 - 51.0 % [facility] PLT 173 130 - 400 K/uL [facility] MCV 89.0 79.0 - 98.0 fL [facility] MCH 29.5 27.0 - 34.8 pg [facility] MCHC 33.2 31.5 - 36.0 g/dL [facility] RDW 12.8 10.8 - 14.6 % [facility] MPV 11.0 9.4 - 12.4 fl [facility] NRBC 0.00 /100 WBCs [facility] ABSOLUTE NRBC 0.00 K/uL [facility] DIFF METHOD Auto [facility] NEUTS 63.9 45.30 - 77.70 % [facility] LYMPHS 22.6 12.30 - 39.70 % [facility] MONOS 10.0 4.10 - 12.80 % [facility] EOS 3.0 0 - 7.2 % [facility] BASOS 0.1 0 - 2.80 % [facility] Granulocytes, immature (%) 0.4 0.0 - 0.9 % [facility] ABSOLUTE NEUTS 4.48 1.40 - 7.70 K/uL [facility] ABSOLUTE LYMPHS 1.59 0.60 - 3.20 K/uL [facility] ABSOLUTE MONOS 0.70(H) 0.11 - 0.59 K/uL [facility] ABSOLUTE EOS 0.21 0.01 - 0.50 K/uL [facility] ABSOLUTE BASOS 0.01 0.00 - 0.08 K/uL [facility] Granulocytes, immature 0.03 0.00 - 0.05 K/uL [facility] Blood 04/14/2017 12:1 3 PM EST 04/14/2017 12:15 PM EST us Philip Jurado MD LAB BLOOD BKR ORDERABLES Final Result [facility] [address] [place] [address] documented in this encounter Visit Diagnoses Diagnosis Low back pain, unspecified back pain laterality, unspecified chronicity, with sciatica presence unspecified- Primary documented in this encounter Care Teams Pin Or Clip Fastener Relationship Specialty Start Date End Date Philip Jurado MD PCP - General Internal Medicine 03/31/17 documented as of this encounter Additional Source Comments The information contained in this document represents components of the legal health record. It is not the complete legal health record.[facility]
--- OUTSIDE RECORDS SUMMARY | 2024-12-28 10:22 | XMS_ITS | Encounter Summary ---
Author Organization [facility] Address [address] [facility] [address] [place] [address] Phone Care Team Providers Care Bottle Feeder Name Role Phone Philip Jurado MD Primary Care Provider Unavaila ble Encounter Details Date Type Department Care Team (Late st Contact Info) Description 04/14/2017 Ancillary Orders Virtual Department [address] [place] [address] Philip Jurado MD Thoracic back pain, unspecified back pain laterality, unspecified chronicity; Other back pain, unspecified chronicity Social History Tobacco Use Types Packs/Day Years Used Date Smoking Tobacco: Never Assessed Sex and Gender Information Value Date Recorded Sex Assigned at Not on file Legal Sex Male 10:07 PM EDT Gender Identity Not on file Sexual Orientation Not on file documented as of this encounter Plan of Treatment Not on file documented as of this encounter Results * XR LUMBOSACRAL SPINE 4 OR MORE VIEWS (04/14/2017 12:07 PM EST) Anatomical Region Laterality Modality L-spine Radiographic Oxana ging 04/14/2017 12:2 7 PM EST Impressions 04/14/2017 12:28 PM EST Lower lumbar degenerative facet arthropathy without advanced degenerative disc disease or acute bony abnormality suggested. POS [id number] Narrative 04/14/2017 12:28 PM EST COMPARISON: None FINDINGS: Frontal, lateral, and oblique views were obtained. No vertebral body fracture or subluxation are demonstrated. There is mild ventral spondylosis at the L3 and L4 levels without advanced disc space narrowing. Moderate degenerative facet changes are present at the lumbosacral junction. No spondylolysis apparent. Procedure Note Marsha Rojas MD - 04/14/2017 COMPARISON: None FINDINGS: Frontal, lateral, and oblique views were obtained. No vertebral bodyfracture or subluxation are demonstrated. There is mild ventralspondylosis at the L3 and L4 levels without advanced disc space narrowing.Moderate degenerative facet changes are present at the lumbosacraljunction. No spondylolysis apparent. IMPRESSION: Lower lumbar degenerative facet arthropathy without advanced degenerativedisc disease or acute bony abnormality suggested. POS [id number] us Philip Jurado MD [facility] XR SPINE Final Result * XR THORACIC SPINE 3 VIEW (04/14/2017 12:06 PM EST) Anatomical Region Laterality Modality T-spine Radiographic Oxana ging 04/14/2017 12:2 6 PM EST Impressions 04/14/2017 12:27 PM EST Mild scoliosis and degenerative disc disease without acute bony abnormality apparent. POS [id number] Narrative 04/14/2017 12:27 PM EST COMPARISON: 05/22/2009 chest FINDINGS: AP, lateral, and swimmer's views were obtained disclosing a mild chronic right convex lower thoracic scoliotic curvature. No vertebral body fracture or subluxation are demonstrated. Mid thoracic spondylosis is present. Paraspinal soft tissues are within normal limits. Procedure Note Marsha Rojas MD - 04/14/2017 COMPARISON: 05/22/2009 chest FINDINGS: AP, lateral, and swimmer's views were obtained disclosing a mild chronicright convex lower thoracic scoliotic curvature. No vertebral bodyfracture or subluxation are demonstrated. Mid thoracic spondylosis ispresent. Paraspinal soft tissues are within normal limits. IMPRESSION: Mild scoliosis and degenerative disc disease without acute bonyabnormality apparent. POS [id number] us Philip Jurado MD G XR SPINE Final Result documented in this encounter Visit Diagnoses Diagnosis Thoracic back pain, unspecified back pain laterality, unspecified chronicity Other back pain, unspecified chronicity Thoracic back pain, unspecified back pain laterality, unspecified chronicity Other back pain, unspecified chronicity documented in this encounter Care Teams Bottle Feeder Relationship Specialty Start Date End Date Philip Jurado MD PCP - General Internal Medicine 03/31/17 documented as of this encounter Additional Source Comments The information contained in this document represents components of the legal health record. It is not the complete legal health record.[facility]
== END 2024-12-28 10:15 | disposition home or self-care (01) ==
PROVIDERS: PCP Internal Medicine; Visit Provider Physician Assistant
DX: S40.862A Insect bite (nonvenomous) of left upper arm, initial encounter (principal); W57.XXXA Bitten or stung by nonvenomous insect and other nonvenomous arthropods, initial encounter

== ENCOUNTER → 2024-12-28 09:29 | Outpatient (BNVA) | payer MEDICARE, SELFPAY | PROVIDERS: PCP Internal Medicine; Visit Provider Physician Assistant | DX: S40.862A Insect bite (nonvenomous) of left upper arm, initial encounter (principal); W57.XXXA Bitten or stung by nonvenomous insect and other nonvenomous arthropods, initial encounter | CPT/HCPCS: 99212 ==

== ENCOUNTER 2025-01-11 07:49 | Outpatient (REF) | payer MEDICARE, SELFPAY ==
--- OUTSIDE RECORDS SUMMARY | 2025-01-11 07:54 | XMS_ITS | Encounter Summary ---
Author Organization [facility] Address [address] [facility] [address] [place] [address] Phone Care Team Providers Care Small Business Consultant Name Role Phone Philip Jurado MD Primary Care Provider Unavaila ble Encounter Details Date Type Department Care Team (Latest Contact Info) Description 04/14/2017 Transcribe Orders [address] [place] [address] Philip Jurado MD Low back pain, unspecified [...] rate (ESR) (04/14/2017 12:13 PM EST) Pathologist [facility] ESR 3 0 - 20 mm/h [facility] Blood 04/14/2017 12:1 3 PM EST 04/14/2017 12:15 PM EST us Philip Jurado MD LAB BLOOD BKR ORDERABLES Final Result [facility] [address] [place] [address] * C-Reactive Protein (04/14/2017 12:13 PM EST) Pathologist [facility] C REACTIVE PROTEIN 0.0 0 - 0.5 mg/L [facility] Blood 04/14/2017 12:1 3 PM EST 04/14/2017 12:15 PM EST us Philip Jurado MD LAB BLOOD BKR ORDERABLES Final Result [facility] [address] [place] [address] * (ABNORMAL) CBC and differential (04/14/2017 12:13 PM EST) WBC 7.02 3.40 - 11.20 K/uL [facility] RBC 4.98 4.50 - 5.50 M/uL [facility] HGB 14.7 13.0 - 17.0 g/dL [facility] HCT 44.3 40.0 - 51.0 % [facility] PLT 173 130 - 400 K/uL [facility] MCV 89.0 79.0 - 98.0 fL [facility] MCH 29.5 27.0 - 34.8 pg [facility] MCHC 33.2 31.5 - 36.0 g/dL [facility] RDW 12.8 10.8 - 14.6 % [facility] MPV 11.0 9.4 - 12.4 fl [facility] NRBC 0.00 /100 WBCs [facility] ABSOLUTE NRBC 0.00 K/uL [facility] DIFF METHOD Auto [facility] NEUTS 63.9 45.30 - 77.70 % [facility] LYMPHS 22.6 12.30 - 39.70 % [facility] MONOS 10.0 4.10 - 12.80 % [facility] EOS 3.0 0 - 7.2 % [facility] BASOS 0.1 0 - 2.80 % [facility] Granulocytes, immature (%) 0.4 0.0 - 0.9 % [facility] ABSOLUTE NEUTS 4.48 1.40 - 7.70 K/uL [facility] ABSOLUTE LYMPHS 1.59 0.60 - 3.20 K/uL [facility] ABSOLUTE MONOS 0.70(H) 0.11 - 0.59 K/uL [facility] ABSOLUTE EOS 0.21 0.01 - 0.50 K/uL [facility] ABSOLUTE BASOS 0.01 0.00 - 0.08 K/uL [facility] Granulocytes, immature 0.03 0.00 - 0.05 K/uL [facility] Blood 04/14/2017 12:1 3 PM EST 04/14/2017 12:15 PM EST us Philip Jurado MD LAB BLOOD BKR ORDERABLES Final Result [facility] [address] [place] [address] documented in this encounter Visit Diagnoses Diagnosis Low back pain, unspecified back pain laterality, unspecified chronicity, with sciatica presence unspecified- Primary documented in this encounter Care Teams Small Business Consultant Relationship Specialty Start Date End Date Philip Jurado MD PCP - General Internal Medicine 03/31/17 documented as of this encounter Additional Source Comments The information contained in this document represents components of the legal health record. It is not the complete legal health record.[facility]
--- OUTSIDE RECORDS SUMMARY | 2025-01-11 07:54 | XMS_ITS | Clinical Summary ---
Author Organization [facility] Address [address] [place], [place] [phone] Phone Care Team Providers Care Veterinary Attendant Name Role Phone Philip Jurado MD Primary [...] file Insurance MEDICARE PART A & B Member Subscriber Plan / Payer (Ef fective 2009-Present) Name:Jose R Adrian Member ID:[id number] Relation to Subscriber:Self Name:Jose R Adrian Subscriber ID:[id number] Payer ID:[id number] Group ID:Not on file Type:Medicare Address: [facility] [address] [place] [address] [place] [phone] [facility] MEDICARE SUPPLEMENT MEDICARE PART A & B MEDICARE SUPPLEMENT MEDICARE PART A & B MEDICARE SUPPLEMENT MEDICARE PART A & B MEDICARE SUPPLEMENT MEDICARE PART A & B MEDICARE SUPPLEMENT MEDICARE PART A & B [facility] MEDICARE SUPPLEMENT MEDICARE PART A & B Member Subscriber Plan / Payer (Ef fective 2009-Present) Name:Jose R Adrian Member ID:[id number] Relation to Subscriber:Self Name:Jose R Adrian Subscriber ID:[id number] Payer ID:[id number] Group ID:Not on file Type:Medicare Address: [facility] [employer] [address] [place] [address] MEDICARE SUPPLEMENT MEDICARE PART A & B Member Subscriber Plan / Payer ( fective 2009-Present) Name:Josesitokatalinajavon Jose R Member ID:[id number] Relation to Subscriber:Self Name:Douglas Adriann Subscriber ID:[id number] Payer ID:[id number] Group ID:Not on file Type:Medicare Address: [facility] [address] [place] [address] MEDICARE SUPPLEMENT MEDICARE PART A & B [facility] MEDICARE SUPPLEMENT Care Teams Veterinary Attendant Relationship Specialty Start Date End Date Philip Jurado MD PCP - General Internal Medicine 03/31/17 Additional Source Comments The information contained in this document represents components of the legal health record. It is not the complete legal health record.[facility]
--- OUTSIDE RECORDS SUMMARY | 2025-01-11 07:54 | XMS_ITS | Encounter Summary ---
Author Organization [facility] Address [address] [facility] [address] [place] [address] Phone Care Team Providers Care Calliope Player Name Role Phone Philip Jurado MD Primary Care Provider Unavaila ble Encounter Details Date Type Department Care Team (Late st Contact Info) Description 04/14/2017 Ancillary Orders Virtual Department [address] [place] [address] Philip Jurado MD Thoracic back pain, unspecified [...] disease or acute bony abnormality suggested. POS [id number] Narrative 04/14/2017 12:28 PM EST COMPARISON: None [...] disease or acute bony abnormality suggested. POS [id number] us Philip Jurado MD [facility] XR SPINE Final Result * XR THORACIC SPINE 3 VIEW (04/14/2017 12:06 PM EST) Anatomical Region Laterality Modality T-spine Radiographic Oxana ging 04/14/2017 12:2 6 PM EST Impressions 04/14/2017 12:27 PM EST Mild scoliosis and degenerative disc disease without acute bony abnormality apparent. POS [id number] Narrative 04/14/2017 12:27 PM EST COMPARISON: 05/22/2009 [...] disc disease without acute bonyabnormality apparent. POS [id number] us Philip Jurado MD G XR SPINE Final Result documented in this encounter Visit Diagnoses Diagnosis Thoracic back pain, unspecified back pain laterality, unspecified chronicity Other back pain, unspecified chronicity Thoracic back pain, unspecified back pain laterality, unspecified chronicity Other back pain, unspecified chronicity documented in this encounter Care Teams Calliope Player Relationship Specialty Start Date End Date Philip Jurado MD PCP - General Internal Medicine 03/31/17 documented as of this encounter Additional Source Comments The information contained in this document represents components of the legal health record. It is not the complete legal health record.[facility]
--- OUTSIDE RECORDS SUMMARY | 2025-01-11 07:54 | XMS_ITS | Encounter Summary ---
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 Comment: Interpretation: Risk Level Males Decreased >45 mg/dL Average 40-45 mg/dL Increased <40 mg/dL CHOLESTEROL 126 0 - 240 mg/dL [facility] TRIGLYCERIDES 59 30 - 160 mg/dL [facility] LDL 59 50 - 129 mg/dL [facility] Comment: LDL levels in terms of risk for coronary heart disease: <100 mg/dL: Optimal 100-129 mg/dL: Near or above optimal 130-159 mg/dL: Borderline high 160-189 mg/dL: High >190 mg/dL: Very High CARDIAC RISK RATIO 2.3(L) 3.4 - 5.0 [facility] Blood 03/31/2017 7:45 AM EST 03/31/2017 7:48 AM EST us Philip Jurado MD LAB BLOOD BKR ORDERABLES Final Result Performing Organization Address City/[facility]/ZIP Co de Phone Number [address] [address] * Comprehensive metabolic panel (03/31/2017 7:45 AM EST) SODIUM 144 133 - 146 mmol/L [facility] POTASSIUM 5.0 3.3 - 5.1 mmol/L [facility] CHLORIDE 106 96 - 108 mmol/L [facility] CO2 29 21 - 35 mmol/L [facility] BUN 13 6 - 19 mg/dL [facility] CREATININE 1.00 0.5 - 1.5 mg/dL [facility] GLUCOSE 97 70 - 99 mg/dL [facility] ALBUMIN 4.2 3.9 - 4.8 g/dL [facility] TOTAL PROTEIN 6.6 6.5 - 8.0 g/dL [facility] CALCIUM 9.3 8.4 - 10.3 mg/dL [facility] ALKALINE PHOSPHATASE 93 39 - 117 U/L [facility] TOTAL BILIRUBIN 0.5 0 - 1.2 mg/dL [facility] AST 25 0 - 37 U/L [facility] ALT 23 0 - 40 U/L [facility] GLOBULIN 2.4 1 - 4.8 g/dL [facility] EGFR >60 mL/min/1.7 3m2 [facility] Comment:Abnormal if <60. If patient is -Tai[place]ese, multiply the result by 1.21. ANION GAP 14 10 - 20 mmol/L 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 It is not the complete legal health record.[facility]
[2025-01-11 08:05] LABS: MANUAL DIFF FLAG NO
[2025-01-11 08:14] LABS: Appearance Urine Clear; Glucose Urine UA Negative (Negative); PH 5.0 (5.0-9.0); Specific Gravity - Urine 1.015 (1.005-1.025)
[2025-01-11 08:16] LABS: Hematocrit 45.6 % (42.0-52.0); Hemoglobin 14.6 g/dl (14.0-18.0); Imm Gran Abs Auto 0.01 X10*3/uL (0.00-0.03); Imm Gran Pct Auto 0.2 % (0.0-0.4); Lymphocytes Absolute Auto 1.8 X10*3/uL (1.2-4.9); Mean Corpuscular HGB Conc 32.0 g/dl (31.0-36.0); Mean Corpuscular Hemoglobin 28.9 pg (27.0-33.0); Mean Corpuscular Volume 90.1 fL (80.0-98.0); NRBC Abs Auto 0.000 X10*3/uL (0.0-0.012); NRBC Pct Auto 0.0 /100WBC (0.0-0.2); Platelet Count 195 X10*3/uL (160-400); Red Blood Count 5.06 X10*6/uL (4.60-5.80); White Blood Count 6.0 X10*3/uL (4.8-10.8)
[2025-01-11 08:52] LABS: Alanine Aminotransferase 26 U/L (0-40); Albumin Level 4.3 g/dL (3.5-5.0); Alkaline Phosphatase 85 U/L (39-117); Anion Gap 12 (12-20); Aspartate Amino Transferase 29 U/L (5-37); Blood Urea Nitrogen 12 mg/dL (9-16); Calcium 9.1 mg/dL (8.4-10.2); Carbon Dioxide 26 mmol/L (22-29); Chloride 111 mmol/L (96-108); Cholesterol 117 mg/dL (<200); Estimated Glomerular Filt Rate > 60; HDL Cholesterol 44 mg/dL (>40); Potassium 4.6 mmol/L (3.3-5.1); Sodium 144 mmol/L (135-145); Total Protein 6.7 g/dL (6.5-8.0); Triglycerides 60 mg/dL (<150)
== END 2025-01-11 07:50 | disposition home or self-care (01) ==
LOC: HO.LAB 07:49
PROVIDERS: PCP Internal Medicine; Visit Provider Internal Medicine
DX: I25.10 Atherosclerotic heart disease of native coronary artery without angina pectoris (principal); E78.5 Hyperlipidemia, unspecified; R73.9 Hyperglycemia, unspecified; E55.9 Vitamin D deficiency, unspecified
CPT/HCPCS: 36415; 80053; 80061; 81001; 82306; 83036; 85025

== ENCOUNTER 2025-01-21 09:14 | Outpatient (AMB) | payer MEDICARE, SELFPAY ==
--- NOTE | 2025-01-21 09:19 | AM.OFFVISMDC ---
Intake Vital Signs 01/21/25 09:21 Height 5 ft 7.5 in Weight 152 lb BMI 23.5 BP 100/64 Blood Pressure Location Rt brachial Position Sitting Respiration 16 Pulse 63 Pulse Source Pulse Oximeter Temp 97.5 F Temp Source Oral Pulse Oximetry (%) 96 Oxygen Delivery Method Room Air Intake Visit Reasons: AWV Intake Note: Pt is here today for AWV. Allergies No Known Allergies Allergy (Verified 01/21/25 09:39) Medication List - Last Reconciled 01/21/25 by Britney Mcneal MD acetaminophen (Tylenol Extra Strength) 500 mg PO Q6H PRN aspirin 81 mg PO DAILY atorvastatin 40 mg PO DAILY brimonidine 0.2% drps ophthalmic (eye) cholecalciferol (vitamin D3) 25 mcg PO DAILY famotidine 20 mg PO BEDTIME finasteride 5 mg PO DAILY latanoprostene bunod 0.024% (Vyzulta) drps ophthalmic (eye) simethicone (Gas Relief (simethicone)) 125 mg PO BID-QID PRN timolol 0.5% 1 drp ophthalmic (eye) DAILY HPI AWV HPI Details Initiated the conversation about Advanced Directives. Advanced Directives help? patients prepare for current and future decisions about their medical treatment? and place of care. Discussed with patient that it is a process where a patients? current condition and prognosis are reviewed, their wishes for information? regarding their illness are elicited, and likely medical dilemmas are presented? and options discussed. The form can be amended as needed, reviewed yearly and? make changes as needed IPPE/AWV ? year old presents? for her ? Annual? Wellness Visit, initial visit.? Medical / Social History Reviewed? Past Medical History ?Yes? . ? [place]? of Care / Care Team list updated ?Yes . ? Surgical/Hospitalization? History ?Yes . ? Current Medications? (including OTC and supplements) ?Yes . ? Family History ?Yes? . ? Tobacco? Control form ?Yes . ? AUDIT-C (Alcohol use) form? ?Yes . ? Illicit drug use in Social? History ?Yes . ? Current diagnosis of? depression? ?No ? Appropriate PHQ2/PHQ9? completed ?Yes . ? Data entered by ?Medical? Bulk Receiver and reviewed by provider ? Fall Risk ? Fall? History? Have you had any falls with? injury in the past year? ?No . ? Have you had two or more? falls in the past year? ?No . ? Fall Risk Assessment: ?No? falls in the past year . ? HRA filled out by? the patient, reviewed by Provider and scanned. ? IPPE/AWV ? Balance? [place]? ?Yes . ? Tandem? walk ?Yes . ? Walk and? Turn ?Yes . ? Rise from? sit to stand ?Yes . ?Vision? Corrective? lens ?Yes ? Vision? screen ? Up-to-date, has an appointment [] for vision? screening and glaucoma screening ?Hearing? Whisper? test ?pass .? Initiated the conversation about Advanced Directives. Advanced Directives help? patients prepare for current and future decisions about their medical treatment? and place of care. Discussed with patient that it is a process where a patients? current condition and prognosis are reviewed, their wishes for information? regarding their illness are elicited, and likely medical dilemmas are presented? and options discussed. The form can be amended as needed, reviewed yearly and? make changes as needed Written? Plan?Completed. See Patient? Documents. [facility] Medical History (Updated 01/21/25 @ 10:33 by Britney Mcneal MD) Hyperglycemia Trigger finger of right hand Annual physical exam CAD (coronary artery disease) Hyperlipidemia Surgical History Stented coronary artery Family History Father Cardiovascular disease Mother No problems noted. Social History Housing: House Alcohol intake: current Alcohol intake frequency: a few times a month Alcohol type: beer Patient Tobacco Use Status: Former Tobacco user e-Cigarette/Vaping Use: Never Used Current occupational status: retired Current occupation: rt hand Cognitive needs: No Hearing needs: No Vision needs: Yes Questionnaire Medicare Wellness Checkup [age] What gender do you identify with?: male During the past 4 weeks, how much have you been bothered by emotional problems such as feeling anxious, depressed, irritable, sad or downhearted, and blue?: not at all During the past 4 weeks, has your physical & emotional health limited your social activities with family, friends, neighbors, or groups?: not at all During the past 4 weeks, how much bodily pain have you generally had?: moderate pain During the past 4 weeks, was someone available to help you if you needed & wanted help?: no, not at all During the past 4 weeks, what was the hardest physical activity you could do for at least 2 minutes?: moderate Can you get to places out of walking distance without help? (For eg., can you travel alone on buses, taxis or drive your car?): Yes Can you go shopping for groceries or clothes without someone's help?: Yes Can you prepare your own meals?: Yes Can you do your housework without help?: Yes Because of any health problems, do you need the help of another person with your personal care needs such as eating, bathing, dressing or getting around the house?: No Can you handle your own money without help?: Yes During the past 4 weeks, how would you rate your health in general?: very good During the past 4 weeks how have things been going for you?: pretty well Are you having difficulties driving your car?: no Do you always fasten your seat belt when you are in a car?: yes, usually During past 4 weeks, have you been bothered by the following: never: Falling or dizzy when standing up, Sexual problems?, Trouble eating well?, Teeth or denture problems?, Problems using the telephone? and Tiredness or fatigue? Have you fallen 2 or more times in the past year?: No Are you afraid of falling?: No Are you a smoker?: no During the past 4 weeks, how many drinks of wine, beer, or other alcoholic beverages did you have?: no alcohol at all Do you exercise for about 20 minutes 3 or more times a week?: yes, most of the time Have you been given information to help with the following?: yes: Hazards in your house that might hurt you? and no: Keeping track of your medications? How often do you have trouble taking medicines the way you have been told to take them?: I always take medicine as prescribed How confident are you that you can control & manage most of your health problems?: very confident What is your race?: White Mini Mental State Exam (MMSE) Orientation What is the (year) (season) (date) (day) (month)?: year, season, date, day and month Where are we (state) (county) (town or city) (hospital) (floor)?: state, county, town or city, hospital/clinic and floor Registration Name of 3 unrelated objects clearly and slowly, then ask patient to repeat all 3 of them. (1st repeat determines score. Make sure they can repeat all three): object 1, object 2 and object 3 Attention & Calculation (CHOOSE ONE) Spell WORLD backwards (DLROW): 5 letters Recall Ask patient to repeat the 3 items from question #3.: object 1, object 2 and object 3 Language Show patient a wristwatch & ask what it is. Repeat for pencil.: watch and pencil Ask the patient to repeat the phrase 'No ifs, ands, or buts' after you.: correct Ask the patient to 'take a piece of paper with their right hand' 'fold paper in half' 'place paper on floor': take paper in right hand, fold paper in half and place paper on floor Print the sentence 'CLOSE YOUR EYES' on a piece. If patient actually closes eyes then score.: followed written direction Give patient a blank piece of paper & ask to write a sentence. Score if it contains a noun & verb.: sentence contains subject and verb Score Score: 29 PHQ-9 Over the last 2 weeks, how often have you been bothered by any of the following problems? 1. Little interest or pleasure in doing things: not at all 2. Feeling down, depressed, or hopeless: not at all 3. Trouble falling or staying asleep, or sleeping too much: not at all 4. Feeling tired or having little energy: not at all 5. Poor appetite or overeating: not at all 6. Feeling bad about yourself - or that you are a failure or have let yourself or your family down: not at all 7. Trouble concentrating on things, such as reading the newspaper or watching television: not at all 8. Moving or speaking so slowly that other people could have noticed. Or the opposite - being so fidgety or restless that you have been moving around a lot more than usual: not at all 9. Thoughts that you would be better off or of hurting yourself in some way: not at all Total score: 0 Depression Screening Interpretation: Negative Depression Screening Done: Yes 45786 - PHQ-9 Billing: Yes Source: Developed by Drs. Zaki Coelho, Mariana Oropeza, Tomi Snowden and colleagues, with an educational radha from [employer]. Review of Systems Const All systems reviewed & are unremarkable except as noted in HPI and below ENT Reports no additional complaints Card Reports no additional complaints Resp Reports no additional complaints GI Reports no additional complaints Physical Exam Vital Signs: Last Vital Signs Temp 97.5 F 01/21/25 09:21 Pulse 63 01/21/25 09:21 Resp 16 01/21/25 09:21 BP 100/64 01/21/25 09:21 Pulse Ox 96 01/21/25 09:21 Oxygen Delivery Method Room Air 01/21/25 09:21 BMI result Body Mass Index 23.5 Const General: no acute distress Eyes General: appearance normal, both eyes and all related structures Neck Neck: Yes no lymphadenopathy and Yes supple Resp Effort & Inspection: normal respiratory effort Auscultation: clear to auscultation bilaterally Cardio Rhythm: regular rhythm Heart sounds: S1 normal heart sound present and S2 normal heart sound present GI Inspection: Yes normal to inspection Palpation (GI): Soft to palpation Percussion: Yes normal to percussion Auscultation: normal bowel sounds Extrem General: Yes no clubbing, cyanosis or edema Assessment & Plan Assessment & Plan (1) CAD (coronary artery disease): Code(s): I25.10 - Atherosclerotic heart disease of [place] coronary artery without angina pectoris Plan: continue current medications (2) Hyperlipidemia: Code(s): E78.5 - Hyperlipidemia, unspecified Plan: continue statin (3) Hyperglycemia: Code(s): R73.9 - Hyperglycemia, unspecified Plan: continue ADA diet increase physical activity (4) Annual physical exam: Code(s): Z00.00 - Encounter for general adult medical examination without abnormal findings Plan: well-balanced diet regular physical activity discussed with the patient Medications: New clobetasol 0.05% 1 appl topical DAILY 15 grams 0RF Quality Reporting (2019) Depression/Bipolar (159/160/161/177) PHQ-9: Total score: 0 Coding Level of Care Code Medicare Subsequent (G0439) Diagnoses CAD (coronary artery disease) I25.10 Hyperlipidemia E78.5 Hyperglycemia R73.9 Annual physical exam Z00.00 CPT Codes Advance Care Planning - Advance Care Planning discussion: On file, no changes ([id number]) Advance Care Planning - Time spent: 1-15 minutes, on File ([id number]) Additional Codes PHQ-9 - 01545 - PHQ-9 Billing: Yes ([id number]) Advance Care Planning Advance Care Planning discussion: On file, no changes Forms completed: Health Care Proxy Time spent: 1-15 minutes, on File
[2025-01-21 09:21] VITALS: BP 100/64; PULSE 63; RESP 16; TEMP 36.4; O2SAT 96; BMI 23.5
--- OUTSIDE RECORDS SUMMARY | 2025-01-21 09:56 | XMS_ITS | Encounter Summary ---
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, unspecified vessel or lesion type, unspecified whether [place] or transplanted heart (Primary Dx) Social History [...] (03/31/2017 7:45 AM EST) HDL 55 mg/dL [facility] Comment: Interpretation: Risk Level Males Decreased >45 mg/dL Average 40-45 mg/dL Increased <40 mg/dL CHOLESTEROL 126 0 - 240 mg/dL [facility] TRIGLYCERIDES 59 30 - 160 mg/dL [facility] LDL 59 50 - 129 mg/dL [facility] Comment: LDL levels in terms of risk for coronary heart disease: <100 mg/dL: Optimal 100-129 mg/dL: Near or above optimal 130-159 mg/dL: Borderline high 160-189 mg/dL: High >190 mg/dL: Very High CARDIAC RISK RATIO 2.3(L) 3.4 - 5.0 C [facility] Blood 03/31/2017 7:45 AM EST 03/31/2017 7:48 AM EST us Philip Jurado MD LAB BLOOD BKR ORDERABLES Final Result Performing Organization Address City/[facility] [address]/ZIP Co de Phone Number [address] [address] * Comprehensive metabolic panel (03/31/2017 7:45 AM EST) SODIUM 144 133 - 146 mmol/L [facility] POTASSIUM 5.0 3.3 - 5.1 mmol/L [facility] CHLORIDE 106 96 - 108 mmol/L [facility] CO2 29 21 - 35 mmol/L [facility] BUN 13 6 - 19 mg/dL [facility] CREATININE 1.00 0.5 - 1.5 mg/dL [facility] GLUCOSE 97 70 - 99 mg/dL [facility] ALBUMIN 4.2 3.9 - 4.8 g/dL [facility] TOTAL PROTEIN 6.6 6.5 - 8.0 g/dL [facility] CALCIUM 9.3 8.4 - 10.3 mg/dL [facility] ALKALINE PHOSPHATASE 93 39 - 117 U/L [facility] TOTAL BILIRUBIN 0.5 0 - 1.2 mg/dL [facility] AST 25 0 - 37 U/L [facility] ALT 23 0 - 40 U/L [facility] GLOBULIN 2.4 1 - 4.8 g/dL [facility] EGFR >60 mL/min/1.7 3m2 [facility] Comment:Abnormal if <60. If patient is -Greek, multiply the result by 1.21. ANION GAP 14 10 - 20 mmol/L [facility] Blood 03/31/2017 7:45 AM EST 03/31/2017 7:48 AM EST Philip Jurado MD LAB BLOOD BKR ORDERABLES Final Result Performing Organization Address 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 It is not the complete legal health record.[facility]
--- OUTSIDE RECORDS SUMMARY | 2025-01-21 09:56 | XMS_ITS | Encounter Summary ---
Author Organization [facility] Address [address] [facility] [address] [place] [address] Phone Care Team Providers Care Associate Professor Of Forestry Name Role Phone Philip Jurado MD Primary Care Provider Unavaila ble Encounter Details Date Type Department Care Team (Late st Contact Info) Description 04/14/2017 Ancillary Orders Virtual Department [address] [place] [address] Philip Jurado MD Thoracic back pain, unspecified [...] disease or acute bony abnormality suggested. POS [id number] Narrative 04/14/2017 12:28 PM EST COMPARISON: None [...] disease or acute bony abnormality suggested. POS [id number] us Philip Jurado MD [facility] XR SPINE Final Result * XR THORACIC SPINE 3 VIEW (04/14/2017 12:06 PM EST) Anatomical Region Laterality Modality T-spine Radiographic Oxana ging 04/14/2017 12:2 6 PM EST Impressions 04/14/2017 12:27 PM EST Mild scoliosis and degenerative disc disease without acute bony abnormality apparent. POS [id number] Narrative 04/14/2017 12:27 PM EST COMPARISON: 05/22/2009 [...] disc disease without acute bonyabnormality apparent. POS [id number] us Philip Jurado MD G XR SPINE Final Result documented in this encounter Visit Diagnoses Diagnosis Thoracic back pain, unspecified back pain laterality, unspecified chronicity Other back pain, unspecified chronicity Thoracic back pain, unspecified back pain laterality, unspecified chronicity Other back pain, unspecified chronicity documented in this encounter Care Teams Associate Professor Of Forestry Relationship Specialty Start Date End Date Philip Jurado MD PCP - General Internal Medicine 03/31/17 documented as of this encounter Additional Source Comments The information contained in this document represents components of the legal health record. It is not the complete legal health record.[facility]
--- OUTSIDE RECORDS SUMMARY | 2025-01-21 09:56 | XMS_ITS | Clinical Summary ---
Author Organization [facility] Address [address] [place], [place] [address] Phone Care Team Providers Care Assistant Superintendent For Curriculum Name Role Phone Philip Jurado MD Primary [...] [place] [id number] [facility] MEDICARE [place]LE[place] [address] [place] [id number] MEDICARE PART A & B MEDICARE SUPPLEMENT MEDICARE PART A & B MEDICARE SUPPLEMENT MEDICARE PART A & B MEDICARE SUPPLEMENT MEDICARE PART A & B MEDICARE SUPPLEMENT MEDICARE PART A & B [facility] MEDICARE SUPPLEMENT MEDICARE PART A & B MEDICARE SUPPLEMENT MEDICARE PART A & B MEDICARE SUPPLEMENT MEDICARE PART A & B [facility] MEDICARE SUPPLEMENT Care Teams Assistant Superintendent For Curriculum Relationship Specialty Start Date End Date Philip Jurado MD PCP - General Internal Medicine 03/31/17 Additional Source Comments The information contained in this document represents components of the legal health record. It is not the complete legal health record.[facility]
--- OUTSIDE RECORDS SUMMARY | 2025-01-21 09:56 | XMS_ITS | Encounter Summary ---
Author Organization [facility] Address [address] [facility] [address] [place] [address] Phone Care Team Providers Care Toby Maker Name Role Phone Philip Jurado MD Primary Care Provider Unavaila ble Encounter Details Date Type Department Care Team (Latest Contact Info) Description 04/14/2017 Transcribe Orders [address] [place] [address] Philip Jurado MD Low back pain, unspecified [...] (ESR) (04/14/2017 12:13 PM EST) Pathologist [facility] ESR 3 0 - 20 mm/h [facility] Blood 04/14/2017 12:1 3 PM EST 04/14/2017 12:15 PM EST us Philip Jurado MD LAB BLOOD BKR ORDERABLES Final Result [facility] [address] [place] [address] * C-Reactive Protein (04/14/2017 12:13 PM EST) Pathologist [facility] C REACTIVE PROTEIN 0.0 0 - 0.5 mg/L [facility] Blood 04/14/2017 12:1 3 PM EST 04/14/2017 12:15 PM EST us Philip Jurado MD LAB BLOOD BKR ORDERABLES Final Result [facility] [address] [place] [address] * (ABNORMAL) CBC and differential (04/14/2017 12:13 PM EST) WBC 7.02 3.40 - 11.20 K/uL [facility] RBC 4.98 4.50 - 5.50 M/uL [facility] HGB 14.7 13.0 - 17.0 g/dL [facility] HCT 44.3 40.0 - 51.0 % [facility] PLT 173 130 - 400 K/uL [facility] MCV 89.0 79.0 - 98.0 fL [facility] MCH 29.5 27.0 - 34.8 pg [facility] MCHC 33.2 31.5 - 36.0 g/dL [facility] RDW 12.8 10.8 - 14.6 % [facility] MPV 11.0 9.4 - 12.4 fl [facility] NRBC 0.00 /100 WBCs [facility] ABSOLUTE NRBC 0.00 K/uL [facility] DIFF METHOD Auto [facility] NEUTS 63.9 45.30 - 77.70 % [facility] LYMPHS 22.6 12.30 - 39.70 % [facility] MONOS 10.0 4.10 - 12.80 % [facility] EOS 3.0 0 - 7.2 % [facility] BASOS 0.1 0 - 2.80 % [facility] Granulocytes, immature (%) 0.4 0.0 - 0.9 % [facility] ABSOLUTE NEUTS 4.48 1.40 - 7.70 K/uL [facility] ABSOLUTE LYMPHS 1.59 0.60 - 3.20 K/uL [facility] ABSOLUTE MONOS 0.70(H) 0.11 - 0.59 K/uL [facility] ABSOLUTE EOS 0.21 0.01 - 0.50 K/uL [facility] ABSOLUTE BASOS 0.01 0.00 - 0.08 K/uL [facility] Granulocytes, immature 0.03 0.00 - 0.05 K/uL [facility] Blood 04/14/2017 12:1 3 PM EST 04/14/2017 12:15 PM EST us Philip Jurado MD LAB BLOOD BKR ORDERABLES Final Result [facility] [address] [place] [address] documented in this encounter Visit Diagnoses Diagnosis Low back pain, unspecified back pain laterality, unspecified chronicity, with sciatica presence unspecified- Primary documented in this encounter Care Teams Toby Maker Relationship Specialty Start Date End Date Philip Jurado MD PCP - General Internal Medicine 03/31/17 documented as of this encounter Additional Source Comments The information contained in this document represents components of the legal health record. It is not the complete legal health record.[facility]
== END 2025-01-21 11:35 | disposition home or self-care (01) ==
LOC: HO.HMCC 09:15
PROVIDERS: PCP Internal Medicine; Visit Provider Internal Medicine
DX: Z00.00 Encounter for general adult medical examination without abnormal findings (principal); I25.10 Atherosclerotic heart disease of native coronary artery without angina pectoris; E78.5 Hyperlipidemia, unspecified; R73.9 Hyperglycemia, unspecified

== ENCOUNTER → 2025-01-21 09:14 | Outpatient (BNVA) | payer MEDICARE, SELFPAY | PROVIDERS: PCP Internal Medicine; Visit Provider Internal Medicine | DX: Z13.31 Encounter for screening for depression (principal) | CPT/HCPCS: 96127 ==

== ENCOUNTER 2025-02-05 09:32 | Outpatient (REF) | payer MEDICARE, SELFPAY ==
--- NOTE | ~2025-02-05 | XR_ITS ---
EXAMINATION: XR KNEE, RIGHT CLINICAL INFORMATION: M25.561 - Pain in right knee COMPARISON: None available. TECHNIQUE: Two views of the right knee. FINDINGS: No visible acute fracture, dislocation or suspicious bony lesion. Small suprapatellar joint fluid. Superior patella and tibial tubercle enthesopathy. Joint spaces are maintained. Small patellar spur.. No abnormal soft tissue calcification. XR/XR knee RT 2V IMPRESSION: No acute osseous findings. Electronically signed by: Vinod Dominguez MD 02/07/2025 07:31 AM [facility]
--- OUTSIDE RECORDS SUMMARY | 2025-02-05 09:34 | XMS_ITS | Encounter Summary ---
Author Organization [facility] Address [address] [facility] [address] [place] [address] Phone Care Team Providers Care Sewer Inspector Name Role Phone Philip Jurado MD Primary Care Provider Unavaila ble Encounter Details Date Type Department Care Team (Late st Contact Info) Description 04/14/2017 Ancillary Orders Virtual Department [address] [place] [address] Philip Jurado MD Thoracic back pain, unspecified [...] disease or acute bony abnormality suggested. POS [id number] Narrative 04/14/2017 12:28 PM EST COMPARISON: None [...] disease or acute bony abnormality suggested. POS [id number] us Philip Jurado MD [facility] XR SPINE Final Result * XR THORACIC SPINE 3 VIEW (04/14/2017 12:06 PM EST) Anatomical Region Laterality Modality T-spine Radiographic Oxana ging 04/14/2017 12:2 6 PM EST Impressions 04/14/2017 12:27 PM EST Mild scoliosis and degenerative disc disease without acute bony abnormality apparent. POS [id number] Narrative 04/14/2017 12:27 PM EST COMPARISON: 05/22/2009 [...] disc disease without acute bonyabnormality apparent. POS [id number] us Philip Jurado MD G XR SPINE Final Result documented in this encounter Visit Diagnoses Diagnosis Thoracic back pain, unspecified back pain laterality, unspecified chronicity Other back pain, unspecified chronicity Thoracic back pain, unspecified back pain laterality, unspecified chronicity Other back pain, unspecified chronicity documented in this encounter Care Teams Sewer Inspector Relationship Specialty Start Date End Date Philip Jurado MD PCP - General Internal Medicine 03/31/17 documented as of this encounter Additional Source Comments The information contained in this document represents components of the legal health record. It is not the complete legal health record.[facility]
--- OUTSIDE RECORDS SUMMARY | 2025-02-05 09:34 | XMS_ITS | Encounter Summary ---
Author Organization [facility] Address [address] [facility] [address] [place] [address] Phone Care Team Providers Care Lab Analyst Name Role Phone Philip Jurado MD Primary Care Provider Unavaila ble Encounter Details Date Type Department Care Team (Latest Contact Info) Description 04/14/2017 Transcribe Orders [address] [place] [address] Philip Jurado MD Low back pain, unspecified [...] Center ESR 3 0 - 20 mm/h [facility] Blood 04/14/2017 12:1 3 PM EST 04/14/2017 12:15 PM EST us Philip Jurado MD LAB BLOOD BKR ORDERABLES Final Result [facility] [address] [place] [address] * C-Reactive Protein (04/14/2017 12:13 PM EST) Pathologist [facility] C REACTIVE PROTEIN 0.0 0 - 0.5 mg/L [facility] Blood 04/14/2017 12:1 3 PM EST 04/14/2017 12:15 PM EST us Philip Jurado MD LAB BLOOD BKR ORDERABLES Final Result [facility] [address] [place] [address] * (ABNORMAL) CBC and differential (04/14/2017 12:13 PM EST) WBC 7.02 3.40 - 11.20 K/uL [facility] RBC 4.98 4.50 - 5.50 M/uL [facility] HGB 14.7 13.0 - 17.0 g/dL [facility] HCT 44.3 40.0 - 51.0 % [facility] PLT 173 130 - 400 K/uL [facility] MCV 89.0 79.0 - 98.0 fL [facility] MCH 29.5 27.0 - 34.8 pg [facility] MCHC 33.2 31.5 - 36.0 g/dL [facility] RDW 12.8 10.8 - 14.6 % [facility] MPV 11.0 9.4 - 12.4 fl [facility] NRBC 0.00 /100 WBCs [facility] ABSOLUTE NRBC 0.00 K/uL [facility] DIFF METHOD Auto [facility] NEUTS 63.9 45.30 - 77.70 % [facility] LYMPHS 22.6 12.30 - 39.70 % [facility] MONOS 10.0 4.10 - 12.80 % [facility] EOS 3.0 0 - 7.2 % [facility] BASOS 0.1 0 - 2.80 % [facility] Granulocytes, immature (%) 0.4 0.0 - 0.9 % [facility] ABSOLUTE NEUTS 4.48 1.40 - 7.70 K/uL [facility] ABSOLUTE LYMPHS 1.59 0.60 - 3.20 K/uL [facility] ABSOLUTE MONOS 0.70(H) 0.11 - 0.59 K/uL [facility] ABSOLUTE EOS 0.21 0.01 - 0.50 K/uL [facility] ABSOLUTE BASOS 0.01 0.00 - 0.08 K/uL [facility] Granulocytes, immature 0.03 0.00 - 0.05 K/uL [facility] Blood 04/14/2017 12:1 3 PM EST 04/14/2017 12:15 PM EST us Philip Jurado MD LAB BLOOD BKR ORDERABLES Final Result [facility] [address] [place] [address] documented in this encounter Visit Diagnoses Diagnosis Low back pain, unspecified back pain laterality, unspecified chronicity, with sciatica presence unspecified- Primary documented in this encounter Care Teams Lab Analyst Relationship Specialty Start Date End Date Philip Jurado MD PCP - General Internal Medicine 03/31/17 documented as of this encounter Additional Source Comments The information contained in this document represents components of the legal health record. It is not the complete legal health record.[facility]
--- OUTSIDE RECORDS SUMMARY | 2025-02-05 09:34 | XMS_ITS | Encounter Summary ---
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, unspecified vessel or lesion type, unspecified whether [place] or transplanted heart (Primary Dx) Social History [...] (03/31/2017 7:45 AM EST) HDL 55 mg/dL [facility] Comment: Interpretation: Risk Level Males Decreased >45 mg/dL Average 40-45 mg/dL Increased <40 mg/dL CHOLESTEROL 126 0 - 240 mg/dL [facility] TRIGLYCERIDES 59 30 - 160 mg/dL [facility] LDL 59 50 - 129 mg/dL [facility] Comment: LDL levels in terms of risk for coronary heart disease: <100 mg/dL: Optimal 100-129 mg/dL: Near or above optimal 130-159 mg/dL: Borderline high 160-189 mg/dL: High >190 mg/dL: Very High CARDIAC RISK RATIO 2.3(L) 3.4 - 5.0 [facility] Blood 03/31/2017 7:45 AM EST 03/31/2017 7:48 AM EST us Philip Jurado MD LAB BLOOD BKR ORDERABLES Final Result Performing Organization Address City/[facility]/ZIP Co de Phone Number [address] [address] * Comprehensive metabolic panel (03/31/2017 7:45 AM EST) SODIUM 144 133 - 146 mmol/L [facility] POTASSIUM 5.0 3.3 - 5.1 mmol/L [facility] CHLORIDE 106 96 - 108 mmol/L [facility] CO2 29 21 - 35 mmol/L [facility] BUN 13 6 - 19 mg/dL [facility] CREATININE 1.00 0.5 - 1.5 mg/dL [facility] GLUCOSE 97 70 - 99 mg/dL [facility] ALBUMIN 4.2 3.9 - 4.8 g/dL [facility] TOTAL PROTEIN 6.6 6.5 - 8.0 g/dL [facility] CALCIUM 9.3 8.4 - 10.3 mg/dL [facility] ALKALINE PHOSPHATASE 93 39 - 117 U/L [facility] TOTAL BILIRUBIN 0.5 0 - 1.2 mg/dL [facility] AST 25 0 - 37 U/L [facility] ALT 23 0 - 40 U/L [facility] GLOBULIN 2.4 1 - 4.8 g/dL [facility] EGFR >60 mL/min/1.7 3m2 [facility] Comment:Abnormal if <60. If patient is -Bulgarian, multiply the result by 1.21. 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 It is not the complete legal health record.[facility]
--- OUTSIDE RECORDS SUMMARY | 2025-02-05 09:34 | XMS_ITS | Clinical Summary ---
Author Organization [facility] Address [address] [place], [place] [id number] Phone Care Team Providers Care Unloader Name Role Phone Philip Jurado MD Primary [...] Insurance [place] [id number] [facility] MEDICARE [place] [address] [place] [phone] MEDICARE PART A & B MEDICARE SUPPLEMENT MEDICARE PART A & B MEDICARE SUPPLEMENT MEDICARE PART A & B MEDICARE SUPPLEMENT MEDICARE PART A & B MEDICARE SUPPLEMENT MEDICARE PART A & B [facility] MEDICARE SUPPLEMENT MEDICARE PART A & B MEDICARE SUPPLEMENT MEDICARE PART A & B MEDICARE SUPPLEMENT MEDICARE PART A & B [facility] MEDICARE SUPPLEMENT Care Teams Unloader Relationship Specialty Start Date End Date Philip Jurado MD PCP - General Internal Medicine 03/31/17 Additional Source Comments The information contained in this document represents components of the legal health record. It is not the complete legal health record.[facility]
== END 2025-02-05 09:33 | disposition home or self-care (01) ==
LOC: HO.HMGCLDS 09:32
PROVIDERS: PCP Internal Medicine; Visit Provider Internal Medicine
DX: M25.561 Pain in right knee (principal)
CPT/HCPCS: 73560

== ENCOUNTER → 2025-02-05 09:35 | Outpatient (BNV) | payer MEDICARE, SELFPAY | PROVIDERS: PCP Internal Medicine; Visit Provider Radiology Diagnostic Ultrasound | DX: M25.561 Pain in right knee (principal) | CPT/HCPCS: 73560 ==

== ENCOUNTER 2025-02-07 11:07 | Outpatient (AMB) | payer MEDICARE, SELFPAY ==
--- NOTE | 2025-02-07 12:07 | MHC.PC.OV ---
Vital Signs 02/07/25 12:30 Height 5 ft 7.5 in Weight 152 lb BMI 23.5 BP 120/64 Blood Pressure Location Lt brachial Position Sitting Respiration 16 Pulse 90 Pulse Source Pulse Oximeter Pulse Oximetry (%) 96 Oxygen Delivery Method Room Air Intake Visit Reasons: knee pain Food Beverage Attendant Required: No Accompanied by: Self / Same As Patient Allergies No Known Allergies Allergy (Verified 02/07/25 12:32) Tobacco use date assessed: 02/07/25 Fall risk assessment: No Falls in past year Last assessed Fall Risk: 02/07/25 Dental Screening Dental Screen Date: 02/07/25 Did you have a dental visit in the last 12 months?: Yes Did you have a dental problem in the last 6 months where you did not have access to dental care?: No Was dental information given to patient?: Patient has dentist HPI knee pain HPI Details Patient complains of left knee pain swelling stiffness and warmth for 3 days. Patient denies any injury the pain is worse when patient is trying to walk. He denies fever chills rash or other joint pain or swelling PFSH Medical History Hyperglycemia Trigger finger of right hand Annual physical exam CAD (coronary artery disease) Hyperlipidemia Surgical History Stented coronary artery Family History Father Cardiovascular disease Mother No problems noted. Social History Housing: House Alcohol intake: current Alcohol intake frequency: a few times a month Alcohol type: beer Patient Tobacco Use Status: Former Tobacco user e-Cigarette/Vaping Use: Never Used Current occupational status: retired Current occupation: rt hand Cognitive needs: No Hearing needs: No Vision needs: Yes Questionnaire PHQ-9 Over the last 2 weeks, how often have you been bothered by any of the following problems? 1. Little interest or pleasure in doing things: not at all 2. Feeling down, depressed, or hopeless: not at all 3. Trouble falling or staying asleep, or sleeping too much: not at all 4. Feeling tired or having little energy: not at all 5. Poor appetite or overeating: not at all 6. Feeling bad about yourself - or that you are a failure or have let yourself or your family down: not at all 8. Moving or speaking so slowly that other people could have noticed. Or the opposite - being so fidgety or restless that you have been moving around a lot more than usual: not at all 9. Thoughts that you would be better off or of hurting yourself in some way: not at all Depression Screening Interpretation: Negative Depression Screening Done: Yes [address]6065 - PHQ-9 Billing: Yes Source: Developed by Drs. Zaki Coelho, Mariana Oropeza, Tomi Snowden and colleagues, with an educational radha from [employer] Thrive Questionnaire Date Thrive assessed: 02/07/25 I am a: Patient What is your living situation today?: I have a steady place to live Within the past 12 months, did the food you bought not last and you didn't have the money to get more?: Never true Within the past 12 months, did you worry whether your food would run out before you got money to buy more?: Never true Do you have trouble paying for medicines?: No Do you have trouble getting transportation to medical appointments?: No Do you have trouble paying your heating and electricity bill?: No Do you have trouble taking care of your child, family member or friend?: No Do you have trouble with day-to-day activities such as bathing, preparing meals, shopping, managing finances, etc.?: No Are you currently unemployed and looking for a job?: No Are you interested in more education?: No Please select the resources that you would like help with: None Currently or been in a relationship where the following occur: No concerns reported THRIVE Score: 0 AUDIT C Alcohol Use Questionnaire (AUDIT-C) 1. How often do you have a drink containing alcohol?: Never Total Score: 0 OPHELIA-7 AMB Questionnaire OPHELIA-7 Feeling nervous, anxious, or on edge: 0 = Not at all Not being able to stop or control worryin = Not at all Worrying too much about different things: 0 = Not at all Trouble relaxin = Not at all Being so restless that it is hard to sit still: 0 = Not at all Becoming easily annoyed or irritable: 0 = Not at all Feeling afraid as if something awful might happen: 0 = Not at all Total OPHELIA-7 score (0-4 normal; 5-9 mild; 10-14 moderate; 15-21 severe): 0 Source: Developed by Drs. Zaki Coelho, Mariana Oropeza, Tomi Snowden and colleagues, with an educational radha from [employer] ([employer]). Review of Systems Const All systems reviewed & are unremarkable except as noted in HPI and below ENT Reports no additional complaints Card Reports no additional complaints Resp Reports no additional complaints GI Reports no additional complaints Reports no additional complaints Physical exam (Primary Care) Vital Signs: Last Vital Signs Pulse 90 02/07/25 12:30 Resp 16 02/07/25 12:30 BP 120/64 02/07/25 12:30 Pulse Ox 96 02/07/25 12:30 Oxygen Delivery Method Room Air 02/07/25 12:30 BMI result Body Mass Index 23.5 Tobacco/Smoking Status: Tobacco use Status Tobacco use date assessed 02/07/25 02/07/25 12:34 Patient Tobacco Use Status Former Tobacco user 02/07/25 12:07 e-Cigarette/Vaping Use Never Used 02/07/25 12:07 Depression Screening Interpretation: Negative Thrive Assessment: Date of Thrive Assessment Date Thrive assessed 02/07/25 02/07/25 12:07 Currently or been in a relationship where the following occur: No concerns reported Const General: no acute distress HENMT Head: Yes normal to inspection Resp Effort & Inspection: normal respiratory effort Auscultation: clear to auscultation bilaterally Cardio Rhythm: regular rhythm Heart sounds: S1 normal heart sound present and S2 normal heart sound present GI Inspection: Yes normal to inspection Extrem Other: There is a soft tissue swelling and tenderness over left knee anterior aspect and significantly decreased range of motion due to pain, no erythema General: Yes no clubbing, cyanosis or edema Coding Level of Care Code Est Pt Level 3 (18570) Diagnoses Arthritis M19.90 Additional Codes PHQ-9 - 95426 - PHQ-9 Billing: Yes ([id number]) Assessment & Plan Assessment & Plan (1) Arthritis: Code(s): M19.90 - Unspecified osteoarthritis, unspecified site Category: Medical Plan: For acute left knee arthritis obtain arthritis panel and treat with prednisone taper Orders: Orders Rheumatoid Factor Today M19.90 - Unspecified osteoarthritis, unspecified site C Reactive Protein Today - Unspecified osteoarthritis, unspecified site Lyme IgG/IgM w/reflex to WB Today - Unspecified osteoarthritis, unspecified site Uric Acid Today - Unspecified osteoarthritis, unspecified site YAZMIN Reflex Titer and Pattern Today - Unspecified osteoarthritis, unspecified site Medications: New prednisone 4 tabl qd, then 3 tabl qd , then 2 tabl x 3 days, then 1 qd orally daily; 30 tabs 0RF
[2025-02-07 12:30] VITALS: BP 120/64; PULSE 90; RESP 16; O2SAT 96; BMI 23.5
--- OUTSIDE RECORDS SUMMARY | 2025-02-07 14:08 | XMS_ITS | Clinical Summary ---
Author Organization [facility] Address [address] [place], [place] [id number] Phone Care Team Providers Care Compounding Pharmacy Technician Name Role Phone Philip Jurado MD [...] (Ef fective 2009-Present) Name:Jose R Adrian Member ID:[id number] Relation to Subscriber:Self Name:Jose R Adrian Subscriber ID:[id number] Payer ID:[id number] Group ID:Not on file Type:Medicare Address: [facility] [address] [place] [address] [place] [phone] [facility] MEDICARE SUPPLEMENT [place] [address] [place] [phone] MEDICARE PART A & B MEDICARE SUPPLEMENT MEDICARE PART A & B MEDICARE SUPPLEMENT MEDICARE PART A & B MEDICARE SUPPLEMENT MEDICARE PART A & B MEDICARE SUPPLEMENT MEDICARE PART A & B [facility] MEDICARE SUPPLEMENT MEDICARE PART A & B MEDICARE SUPPLEMENT MEDICARE PART A & B MEDICARE SUPPLEMENT MEDICARE PART A & B [facility] MEDICARE SUPPLEMENT Care Teams Compounding Pharmacy Technician Relationship Specialty Start Date End Date Philip Jurado MD PCP - General Internal Medicine 03/31/17 Additional Source Comments The information contained in this document represents components of the legal health record. It is not the complete legal health record.[facility]
--- OUTSIDE RECORDS SUMMARY | 2025-02-07 14:08 | XMS_ITS | Encounter Summary ---
Author Organization [facility] Address [address] [facility] [address] [place] [phone] Phone Care Team Providers Care Felt Hooker Name Role Phone Philip Jurado MD Primary Care Provider Unavaila ble Encounter Details Date Type Department Care Team (Late st Contact Info) Description 04/14/2017 Ancillary Orders Virtual Department [address] [place] [address] Philip Jurado MD Thoracic back pain, unspecified [...] disease or acute bony abnormality suggested. POS [id number] Narrative 04/14/2017 12:28 PM EST COMPARISON: None [...] disease or acute bony abnormality suggested. POS [id number] us Philip Jurado MD [facility] [place] XR SPINE Final Result * XR THORACIC SPINE 3 VIEW (04/14/2017 12:06 PM EST) Anatomical Region Laterality Modality T-spine Radiographic Oxana ging 04/14/2017 12:2 6 PM EST Impressions 04/14/2017 12:27 PM EST Mild scoliosis and degenerative disc disease without acute bony abnormality apparent. POS [id number] Narrative 04/14/2017 12:27 PM EST COMPARISON: 05/22/2009 [...] disc disease without acute bonyabnormality apparent. POS [id number] us Philip Jurado MD G XR SPINE Final Result documented in this encounter Visit Diagnoses Diagnosis Thoracic back pain, unspecified back pain laterality, unspecified chronicity Other back pain, unspecified chronicity Thoracic back pain, unspecified back pain laterality, unspecified chronicity Other back pain, unspecified chronicity documented in this encounter Care Teams Felt Hooker Relationship Specialty Start Date End Date Philip Jurado MD PCP - General Internal Medicine 03/31/17 documented as of this encounter Additional Source Comments The information contained in this document represents components of the legal health record. It is not the complete legal health record.[facility]
--- OUTSIDE RECORDS SUMMARY | 2025-02-07 14:08 | XMS_ITS | Encounter Summary ---
Author Organization [facility] Address [address] [facility] [address] [place] [address] Phone Care Team Providers Care Hospitality Recruiter Name Role Phone Philip Jurado MD Primary Care Provider Unavaila ble Encounter Details Date Type Department Care Team (Latest Contact Info) Description 04/14/2017 Transcribe Orders [address] [place] [address] Philip Jurado MD Low back pain, unspecified [...] rate (ESR) (04/14/2017 12:13 PM EST) Pathologist [facility] ESR 3 0 - 20 mm/h [facility] Blood 04/14/2017 12:1 3 PM EST 04/14/2017 12:15 PM EST us Philip Jurado MD LAB BLOOD BKR ORDERABLES Final Result [facility] [address] [place] [address] * C-Reactive Protein (04/14/2017 12:13 PM EST) Pathologist [facility] C REACTIVE PROTEIN 0.0 0 - 0.5 mg/L [facility] Blood 04/14/2017 12:1 3 PM EST 04/14/2017 12:15 PM EST us Philip Jurado MD LAB BLOOD BKR ORDERABLES Final Result [facility] [address] [place] [address] * (ABNORMAL) CBC and differential (04/14/2017 12:13 PM EST) WBC 7.02 3.40 - 11.20 K/uL [facility] RBC 4.98 4.50 - 5.50 M/uL [facility] HGB 14.7 13.0 - 17.0 g/dL [facility] HCT 44.3 40.0 - 51.0 % [facility] PLT 173 130 - 400 K/uL [facility] MCV 89.0 79.0 - 98.0 fL [facility] MCH 29.5 27.0 - 34.8 pg [facility] MCHC 33.2 31.5 - 36.0 g/dL [facility] RDW 12.8 10.8 - 14.6 % [facility] MPV 11.0 9.4 - 12.4 fl [facility] NRBC 0.00 /100 WBCs [facility] ABSOLUTE NRBC 0.00 K/uL [facility] DIFF METHOD Auto [facility] NEUTS 63.9 45.30 - 77.70 % [facility] LYMPHS 22.6 12.30 - 39.70 % [facility] MONOS 10.0 4.10 - 12.80 % [facility] EOS 3.0 0 - 7.2 % [facility] BASOS 0.1 0 - 2.80 % [facility] Granulocytes, immature (%) 0.4 0.0 - 0.9 % [facility] ABSOLUTE NEUTS 4.48 1.40 - 7.70 K/uL [facility] ABSOLUTE LYMPHS 1.59 0.60 - 3.20 K/uL [facility] ABSOLUTE MONOS 0.70(H) 0.11 - 0.59 K/uL [facility] ABSOLUTE EOS 0.21 0.01 - 0.50 K/uL [facility] ABSOLUTE BASOS 0.01 0.00 - 0.08 K/uL [facility] Granulocytes, immature 0.03 0.00 - 0.05 K/uL [facility] Blood 04/14/2017 12:1 3 PM EST 04/14/2017 12:15 PM EST us Philip Jurado MD LAB BLOOD BKR ORDERABLES Final Result [facility] [address] [place] [address] documented in this encounter Visit Diagnoses Diagnosis Low back pain, unspecified back pain laterality, unspecified chronicity, with sciatica presence unspecified- Primary documented in this encounter Care Teams Hospitality Recruiter Relationship Specialty Start Date End Date Philip Jurado MD PCP - General Internal Medicine 03/31/17 documented as of this encounter Additional Source Comments The information contained in this document represents components of the legal health record. It is not the complete legal health record.[facility]
--- OUTSIDE RECORDS SUMMARY | 2025-02-07 14:08 | XMS_ITS | Encounter Summary ---
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, unspecified vessel or lesion type, unspecified whether [place] or transplanted heart (Primary Dx) Social History [...] 7:45 AM EST) HDL 55 mg/dL [facility] Comment: Interpretation: Risk Level Males Decreased >45 mg/dL Average 40-45 mg/dL Increased <40 mg/dL CHOLESTEROL 126 0 - 240 mg/dL [facility] TRIGLYCERIDES 59 30 - 160 mg/dL [facility] LDL 59 50 - 129 mg/dL [facility] Comment: LDL levels in terms of risk for coronary heart disease: <100 mg/dL: Optimal 100-129 mg/dL: Near or above optimal 130-159 mg/dL: Borderline high 160-189 mg/dL: High >190 mg/dL: Very High CARDIAC RISK RATIO 2.3(L) 3.4 - 5.0 [facility] Blood 03/31/2017 7:45 AM EST 03/31/2017 7:48 AM EST us Philip Jurado MD LAB BLOOD BKR ORDERABLES Final Result Performing Organization Address City/[facility]/ZIP Co de Phone Number [address] [address] * Comprehensive metabolic panel (03/31/2017 7:45 AM EST) SODIUM 144 133 - 146 mmol/L [facility] POTASSIUM 5.0 3.3 - 5.1 mmol/L [facility] CHLORIDE 106 96 - 108 mmol/L [facility] CO2 29 21 - 35 mmol/L [facility] BUN 13 6 - 19 mg/dL [facility] CREATININE 1.00 0.5 - 1.5 mg/dL [facility] GLUCOSE 97 70 - 99 mg/dL [facility] ALBUMIN 4.2 3.9 - 4.8 g/dL [facility] TOTAL PROTEIN 6.6 6.5 - 8.0 g/dL [facility] CALCIUM 9.3 8.4 - 10.3 mg/dL [facility] ALKALINE PHOSPHATASE 93 39 - 117 U/L [facility] TOTAL BILIRUBIN 0.5 0 - 1.2 mg/dL [facility] AST 25 0 - 37 U/L [facility] ALT 23 0 - 40 U/L [facility] GLOBULIN 2.4 1 - 4.8 g/dL [facility] EGFR >60 mL/min/1.7 3m2 [facility] Comment:Abnormal if <60. If patient is -[place], multiply the result by 1.21. 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 It is not the complete legal health record.[facility]
== END 2025-02-07 15:21 | disposition home or self-care (01) ==
LOC: HO.HMCC 11:08
PROVIDERS: PCP Internal Medicine; Visit Provider Internal Medicine
DX: M19.90 Unspecified osteoarthritis, unspecified site (principal)

== ENCOUNTER 2025-02-07 11:07 | Outpatient (REF) | payer MEDICARE, SELFPAY ==
[2025-02-07 16:45] LABS: Uric Acid 5.1 mg/dL (3.4-7.0)
[2025-02-08 15:35] LABS: Lyme Blot 6.01 index
[2025-02-09 11:35] LABS: Lyme Abs Screen POSITIVE
[2025-02-11 10:48] LABS: Anti Nuclear Antibody Screen NEGATIVE (NEGATIVE)
[2025-02-11 17:04] LABS: 39KD (IgG) Band REACTIVE; 41KD (IgG) Band REACTIVE; Lyme IgG Blot Interp POSITIVE (NEGATIVE); Lyme IgM Blot Interp POSITIVE (NEGATIVE)
== END 2025-02-07 11:08 | disposition home or self-care (01) ==
LOC: HO.HMGCLDS 11:07
PROVIDERS: PCP Internal Medicine; Visit Provider Internal Medicine
DX: M25.561 Pain in right knee (principal); M19.90 Unspecified osteoarthritis, unspecified site
CPT/HCPCS: 36415; 84550; 86038; 86140; 86431; 86617; 86618; 96127; 99212